=== PATIENT | male | born 1935 | race Caucasian/White ===

== ENCOUNTER 2016-10-29 20:46 | Emergency (ER) | payer MEDICARE, BC ==
[2016-10-29] MEDS ORDERED: ceFAZolin VIAL(*) 1 GM in NS 0.9% 50 ML* 50 ML IVPB ONE (22:07)
[2016-10-29 22:23] LABS: Hematocrit 44 % (42-52); Hemoglobin 14.4 g/dl (14.0-18.0); Mean Corpuscular HGB Conc 33 g/dl (31-36); Mean Corpuscular Hemoglobin 32 pg (27-31); Mean Corpuscular Volume 96 fL (80-94); Mean Platelet Volume 8 um3 (7.4-10.4); Red Blood Count 4.56 10^6/ul (4.0-5.4); Red Cell Distribution Width 13 % (10.5-15); White Blood Count 7.8 10^3/ul (3.5-10.8)
[2016-10-29] MEDS ORDERED: ceFAZolin VIAL(*) 1 GM VIAL ONE (22:27)
[2016-10-29 22:38] LABS: Albumin 4.2 g/dL (3.2-5.2); BUN/Creatinine Ratio 11.2 (8-20); C Reactive Protein 4.05 mg/L (< 5.00); Calcium 9.4 mg/dL (8.6-10.3); EGFR African American 66.1 (>60); EGFR Non-African American 51.4 (>60); Globulin 2.3 g/dL (2-4); Potassium 3.7 mmol/L (3.5-5.0); Total Bilirubin 0.4 mg/dL (0.2-1.0); Total Protein 6.5 g/dL (6.4-8.9)
--- NOTE | 2016-10-29 22:51 | RAD ---
Indication: RIGHT lower leg swelling following injury. Comparison: No relevant prior exams available on the [facility] for comparison. Technique: AP and lateral views RIGHT lower leg. Report: Normal alignment. Negative for fracture. Unremarkable soft tissue contours. No conspicuous foreign body evident. Negative for subcutaneous emphysema. IMPRESSION: Negative exam.
[2016-10-29] MEDS ORDERED: Cephalexin CAP* 500 MG PO ONE (23:03)
--- NOTE | 2016-10-29 23:06 | ED ---
Alta Mota Edward, scribed for Maggie Valladares MD on 10/29/16 at 2104 . Lower Extremity - HPI Summary HPI Summary: 81 y/o male presents to ED with RLE pain. Patient was walking two nights ago when a tree limb the size of the patient's head fell on the patient's R landry. The pain started immediately and got progressively worse. Patient stated that erythema and edema in the R landry started tonight, as well as a throbbing pain. Denies fever. No allergies. PMHx NV, no PMHx HTN, DM, bypass surgery. Patient is a nonsmoker and doesn't use EtOH or drugs. - History of Current Complaint Chief Complaint: EDExtremityLower Stated Complaint: TREE FELL ON RIGHT LEG Hx Obtained From: Patient Mechanism Of Injury: Blunt Trauma - Hit with tree limb Onset of Pain: Immediate Onset/Duration: Days - Two days ago Severity Initially: Severe Severity Currently: Severe Pain Intensity: 8 Pain Scale Used: 0-10 Numeric Timing: Constant Character Of Pain: Throbbing Associated Signs And Symptoms: Positive: Swelling, Redness - Allergies/Home Medications Allergies/Adverse Reactions: Allergies Allergy/AdvReac Type Severity Reaction Status Date / Time No Known Allergies Allergy Verified 12/13/13 14:41 PMH/Surg Hx/FS Hx/Imm Hx Previously Healthy: No Cardiovascular History: Reports: Hx Myocardial Infarction - 1997, Other Cardiovascular Problems/Disorders - Heart disease Respiratory History: Reports: Hx Chronic Obstructive Pulmonary Disease (COPD) GI History: Reports: Other GI Disorders - Stomach problems Musculoskeletal History: Reports: Hx Arthritis - Surgical History Surgery Procedure, Year, and Place: Pacemaker, Defribillator Infectious Disease History: No Infectious Disease History: Denies: Traveled Outside the [place] in Last 30 Days - Family History Known Family History: Positive: Cardiac Disease, Other - Stroke - Social History Occupation: Retired Lives: With Family Alcohol Use: None Substance Use Type: Reports: None Smoking Status (MU): Former Smoker Review of Systems Constitutional: Negative Negative: Fever Eyes: Negative ENT: Negative Cardiovascular: Negative Respiratory: Negative Gastrointestinal: Negative Genitourinary: Negative Musculoskeletal: Other - Throbbing pain, R landry Positive: Edema - RLE Skin: Other - Erythema R landry Neurological: Negative Psychological: Normal All Other Systems Reviewed And Are Negative: Yes Physical Exam Triage Information Reviewed: Yes Vital Signs On Initial Exam: Initial Vitals Temp Pulse Resp BP Pulse Ox 97.9 F 77 16 111/64 95 10/29/16 20:51 10/29/16 20:51 10/29/16 20:51 10/29/16 20:51 10/29/16 20:51 Vital Signs Reviewed: Yes Appearance: Positive: Well-Appearing, No Pain Distress Skin: Positive: Warm, Skin Color Reflects Adequate Perfusion, Dry, Other - Anterior scab in the R landry - 7x2 cm abrasion, surrounded by a region of 15x5 cm erythema. No fluctuance. No induration. Eyes: Positive: EOMI, SANTO ENT: Positive: Pharynx normal, TMs normal Neck: Positive: Supple, Nontender Respiratory/Lung Sounds: Positive: Clear to Auscultation, Breath Sounds Present. Negative: Rales, Rhonchi, Wheezes Cardiovascular: Positive: RRR, Other - No gallops. Negative: Murmur, Rub Abdomen Description: Positive: Nontender, Soft, Other: - No rebound. Negative: Distended, Guarding Bowel Sounds: Positive: Present Musculoskeletal: Positive: Normal. Negative: Edema Left, Edema Right Neurological: Positive: Sensory/Motor Intact, Alert, Oriented to Person Place, Time, CN Intact II-III Psychiatric: Positive: Affect/Mood Appropriate Diagnostics - Vital Signs Vital Signs Temp Pulse Resp BP Pulse Ox 10/29/16 20:51 97.9 F 77 16 111/64 95 - Laboratory Lab Results: Lab Results 10/29/16 10/29/16 Range/Units 22:15 22:15 WBC 7.8 (3.5-10.8) 10^3/ul RBC 4.56 (4.0-5.4) 10^6/ul Hgb 14.4 (14.0-18.0) g/dl Hct 44 (42-52) % MCV 96 H (80-94) fL MCH 32 H (27-31) pg MCHC 33 (31-36) g/dl RDW 13 (10.5-15) % Plt Count 118 L (150-450) 10^3/ul MPV 8 (7.4-10.4) um3 Neut % (Auto) 60.9 (38-83) % Lymph % (Auto) 15.6 L (25-47) % [place] % (Auto) 9.2 H (1-9) % Eos % (Auto) 12.8 H (0-6) % Baso % (Auto) 1.5 (0-2) % Absolute Neuts (auto) 4.7 (1.5-7.7) 10^3/ul Absolute Lymphs (auto) 1.2 (1.0-4.8) 10^3/ul Absolute Monos (auto) 0.7 (0-0.8) 10^3/ul Absolute Eos (auto) 1.0 H (0-0.6) 10^3/ul Absolute Basos (auto) 0.1 (0-0.2) 10^3/ul Absolute Nucleated RBC 0 10^3/ul Nucleated RBC % 0 Sodium 137 (133-145) mmol/L Potassium 3.7 (3.5-5.0) mmol/L Chloride 105 (101-111) mmol/L Carbon Dioxide 28 (22-32) mmol/L Anion Gap 4 (2-11) mmol/L BUN 15 (6-24) mg/dL Creatinine 1.34 H (0.67-1.17) mg/dL Est GFR ( Amer) 66.1 (>60) Est GFR (Non-Af Amer) 51.4 (>60) BUN/Creatinine Ratio 11.2 (8-20) Glucose 121 H (70-100) mg/dL Calcium 9.4 (8.6-10.3) mg/dL Total Bilirubin 0.40 (0.2-1.0) mg/dL AST 15 (13-39) U/L ALT 12 (7-52) U/L Alkaline Phosphatase 68 (34-104) U/L C-Reactive Protein 4.05 (< 5.00) mg/L Total Protein 6.5 (6.4-8.9) g/dL Albumin 4.2 (3.2-5.2) g/dL Globulin 2.3 (2-4) g/dL Albumin/Globulin Ratio 1.8 (1-3) Result Diagrams: 10/29/16 22:15 10/29/16 22:15 Lab Statement: Any lab studies that have been ordered have been reviewed, and results considered in the medical decision making process. - Radiology LOWER EXTREMITY XRAY Xray Interpretation: No Acute Changes - Negative exam. Radiology Interpretation Completed By: Radiologist Lower Extremity Course/Dx - Course Course Of Treatment: 81 yo male with cardiomyopathy with new cellulitis to leg after he received an abrasion from a branch. wbc normal, pt and very aware that he needs very close f/u to terence sure this is getting better - Diagnoses Provider Diagnoses: Cellulitis Discharge - Discharge Plan Condition: Stable Disposition: HOME Prescriptions: Cephalexin CAP* [Keflex CAP*] 500 mg PO QID #28 cap Patient Education Materials: Cellulitis (ED) Referrals: Rizwan TATE,Александр Rahman [Primary Care Provider] - 3 Days (Follow up in 2-3 days please.) The documentation as recorded by the Alta mitchell Edward accurately reflects the service I personally performed and the decisions made by me, Maggie Valladares MD.
[2016-10-29 23:18] VITALS: BP 125/66
== END 2016-10-29 23:20 | disposition home or self-care (01) ==
LOC: ED 20:46
DX: L03.90 Cellulitis, unspecified (principal); R60.9 Edema, unspecified; Z87.891 Personal history of nicotine dependence
CPT/HCPCS: 36415; 80053; 85025; 86140; 99283; A9270-GY; J0690

== ENCOUNTER 2016-12-12 17:33 | Emergency (ER) | payer MEDICARE, BC ==
[2016-12-12] MEDS ORDERED: Tetan/Diph/Pertus SYR(Tdap)* 0.5 ML SYR(BOOSTRIX) use SYR IM ONE (18:06)
[2016-12-12] MEDS ORDERED: HYDROcodone/ACETAMIN 5-325 MG* 1 TAB PO ONE (18:55)
--- NOTE | 2016-12-12 19:18 | ED ---
Greg Mota Benjamin, scribed for Maggie Valladares MD on 12/12/16 at 1903 . Laceration/Wound HPI - HPI Summary HPI Summary: 81yo male presents with a left thumb laceration. Pt was cutting ziptie off the waterpipe with a pocket knife and accidentally cut his own left thumb. Pt is not sure when his last tetanus shot was. Pt reports pain in his left thumb upon movement. Hx of [place] and pt has a defibrillator placed. - History of Current Complaint Stated Complaint: THUMB LAC Time Seen by Provider: 12/12/16 18:06 Hx Obtained From: Patient, Family/Commercial Correspondent - Mechanism of Injury: Sharp/Blunt Trauma - sharp Onset/Duration: Lasting Hours, Still Present Aggravating: Movement Alleviating: Compression Timing: Constant Onset Severity: Mild Current Severity: Mild Pain Intensity: 0 Pain Scale Used: 0-10 Numeric Associated Signs & Symptoms: Pain - Allergy/Home Medications Allergies/Adverse Reactions: Allergies Allergy/AdvReac Type Severity Reaction Status Date / Time No Known Allergies Allergy Verified 12/13/13 14:41 PMH/Surg Hx/FS Hx/Imm Hx Endocrine/Hematology History: Denies: Hx Diabetes Cardiovascular History: Reports: Hx Myocardial Infarction - 1997, Hx Pacemaker/ ICD - difibrillator in place, Other Cardiovascular Problems/Disorders - Heart disease; Denies: Hx Hypertension Respiratory History: Reports: Hx Chronic Obstructive Pulmonary Disease (COPD) GI History: Reports: Other GI Disorders - Stomach problems History: Denies: Hx Renal Disease Musculoskeletal History: Reports: Hx Arthritis - Surgical History Surgery Procedure, Year, and Place: Pacemaker, Defribillator Infectious Disease History: No Infectious Disease History: Denies: Traveled Outside the [place] in Last 30 Days - Family History Known Family History: Positive: Cardiac Disease, Other - Stroke - Social History Occupation: Retired Lives: With Family Alcohol Use: None Substance Use Type: Reports: None Smoking Status (MU): Former Smoker Review of Systems Constitutional: Negative Eyes: Negative ENT: Negative Cardiovascular: Negative Respiratory: Negative Gastrointestinal: Negative Genitourinary: Negative Positive: Arthralgia - left thumb pain d/t laceration , Decreased ROM - left thumb pain d/t pain Positive: Other - left thumb laceration Neurological: Negative Psychological: Normal All Other Systems Reviewed And Are Negative: Yes Physical Exam Triage Information Reviewed: Yes Vital Signs On Initial Exam: Initial Vitals Temp Pulse Resp BP Pulse Ox 98.6 F 57 17 124/68 96 12/12/16 17:44 12/12/16 17:44 12/12/16 17:44 12/12/16 17:44 12/12/16 17:44 Vital Signs Reviewed: Yes Appearance: Positive: Well-Appearing, No Pain Distress, Well-Nourished Skin: Positive: Warm, Skin Color Reflects Adequate Perfusion, Dry, Other - 2cm laceration at the MCP of left thumb Head/Face: Positive: Normal Head/Face Inspection Eyes: Positive: Normal ENT: Positive: Normal ENT inspection, Hearing grossly normal Neck: Positive: Supple, Nontender, No Lymphadenopathy Respiratory/Lung Sounds: Positive: Clear to Auscultation, Breath Sounds Present Cardiovascular: Positive: RRR Abdomen Description: Positive: Nontender, Soft Bowel Sounds: Positive: Present Musculoskeletal: Positive: Limited @ - cant fully abduct the left thumb seems to be due to pain, Pain @ - cant fully abduct the left thumb seems to be due to pain Neurological: Positive: Alert, Oriented to Person Place, Time, CN Intact II-III , Other - sensation of left thumb intact. Psychiatric: Positive: Affect/Mood Appropriate Procedures - Laceration/Wound Repair left thumb Location: Other - left thumb Description: Linear Length, Depth and Shape: 5cm MCP of left thumb Betadine Prep?: Yes Irrigated w/ Saline (ccs): 250 Laceration/Wound Explored: clean Closure: Single Layer Suture Type: Nylon - 4.0 Number of Sutures: 3 Diagnostics - Vital Signs Vital Signs Temp Pulse Resp BP Pulse Ox 12/12/16 18:27 98.6 F 57 16 124/68 96 12/12/16 17:44 98.6 F 57 17 124/68 96 - Laboratory Lab Statement: Any lab studies that have been ordered have been reviewed, and results considered in the medical decision making process. Laceration Repair Course/Dx - Course Course Of Treatment: Reviewed pts medication and allergy lists. Will refer pt to Dr. Cox (Ortho) for follow up. Pt with deep but small wound to lateral thumb at mcp joint with a knife. He had much difficulty abducting the thumb likely secondary to pain, but pt will do followup with hand surgeon to rule out any tendon injury, neurovascularly intact. - Clinical Impression Provider Diagnoses: Laceration Discharge - Discharge Plan Condition: Stable Disposition: HOME Prescriptions: Cephalexin CAP* [Keflex 500 CAP*] 500 mg PO QID #28 cap The documentation as recorded by the Greg mitchell Benjamin accurately reflects the service I personally performed and the decisions made by me, Maggie Valladares MD.
[2016-12-12 20:21] VITALS: BP 120/70
== END 2016-12-12 19:40 | disposition home or self-care (01) ==
LOC: ED 17:33
DX: S61.012A Laceration without foreign body of left thumb without damage to nail, initial encounter (principal); W26.0XXA Contact with knife, initial encounter; Y93.89 Activity, other specified; Y92.9 Unspecified place or not applicable; Z87.891 Personal history of nicotine dependence
CPT/HCPCS: 90471; 90715; 99281

== ENCOUNTER 2017-01-01 13:53 | Emergency (ER) | payer MEDICARE, BC ==
--- NOTE | 2017-01-01 14:59 | RAD ---
HISTORY: Right shoulder pain, injury COMPARISONS: None VIEWS: 4, Frontal internal rotation, external rotation, outlet, and axillary views of the right shoulder FINDINGS: BONE DENSITY: There is diffuse osteopenia. BONES: The patient is status post internal fixation of the clavicle. JOINTS: There is mild to moderate osteoarthritis of the a.c. and glenohumeral joints. ALIGNMENT: There is no dislocation. SOFT TISSUES: Unremarkable. OTHER FINDINGS: None. IMPRESSION: 1. OSTEOPENIA. 2. OSTEOARTHRITIS. 3. POST SURGICAL CHANGE TO THE RIGHT CLAVICLE. 4. NO ACUTE OSSEOUS INJURY. IF SYMPTOMS PERSIST, RECOMMEND REPEAT IMAGING.
--- NOTE | 2017-01-01 15:00 | RAD ---
HISTORY: Right upper pain, trauma COMPARISONS: None VIEWS: 4, Frontal, lateral, and oblique views the elbow of the right elbow FINDINGS: BONE DENSITY: Normal. BONES: There is no displaced fracture. JOINTS: There is osteoarthritis of the ulna-trochlear and radial-capitellar articulation. There is no posterior supracondylar fat pad to suggest a joint effusion. ALIGNMENT: There is no dislocation. SOFT TISSUES: Unremarkable. OTHER FINDINGS: None. IMPRESSION: OSTEOARTHRITIS. NO ACUTE OSSEOUS INJURY. IF SYMPTOMS PERSIST, RECOMMEND REPEAT IMAGING.
[2017-01-01] MEDS ORDERED: Naproxen TAB* 250 MG PO ONE (15:47)
--- NOTE | 2017-01-01 15:51 | ED ---
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 States he was walking when he fell/slid into a 4 foot hole landing and applying all weight to right shoulder. Patient denies any other injuries, did not hit head, no LOC. Has not taken any medication. States pain is aching and sharp when attempting to move it. Denies numbness/tingling. No back, neck, hip or lower extremity pain. States pain worsens with movement and is better with rest. No known bruising, swelling or obvious deformity. - History of Current Complaint Chief Complaint: EDTraumaMultiple Stated Complaint: FALL, SHOULDER INJURY Time Seen by Provider: 01/01/17 14:16 Hx Obtained From: Patient Mechanism Of Injury: Fall From Height Of: - 4 feet, "slid", Twisted Onset/Duration: Started Hours Ago, Traumatic, Still Present Timing: Constant, Intermittent - worse with lifting or movement Severity Initially: Moderate Severity Currently: Moderate Pain Location: Shoulder - right Aggravating Factor(s): Movement, Lifting, Flexion Alleviating Factor(s): Rest Associated Signs & Symptoms: Positive: Negative Related History: Dominant Hand Right - Allergies/Home Medications Allergies/Adverse Reactions: Allergies Allergy/AdvReac Type Severity Reaction Status Date / Time No Known Allergies Allergy Verified 12/13/13 14:41 PMH/Surg Hx/FS Hx/Imm Hx Endocrine/Hematology History: Denies: Hx Diabetes Cardiovascular History: Reports: Hx Myocardial Infarction - 1997, Hx Pacemaker/ ICD - difibrillator in place, Other Cardiovascular Problems/Disorders - Heart disease; Denies: Hx Hypertension Respiratory History: Reports: Hx Chronic Obstructive Pulmonary Disease (COPD) GI History: Reports: Other GI Disorders - Stomach problems History: Denies: Hx Renal Disease Musculoskeletal History: Reports: Hx Arthritis - Surgical History Surgery Procedure, Year, and Place: Pacemaker, Defribillator - Immunization History Immunizations Up to Date: Yes Infectious Disease History: No Infectious Disease History: Denies: Traveled Outside the [place] in Last 30 Days - Family History Known Family History: Positive: Cardiac Disease, Other - Stroke - Social History Alcohol Use: None Substance Use Type: Reports: None Smoking Status (MU): Former Smoker Review of Systems Constitutional: Negative Cardiovascular: Negative Respiratory: Negative Positive: Arthralgia, Myalgia, Decreased ROM - right shoulder Skin: Negative Neurological: Negative All Other Systems Reviewed And Are Negative: Yes Physical Exam Triage Information Reviewed: Yes Vital Signs On Initial Exam: Initial Vitals Temp Pulse Resp BP Pulse Ox 96.9 F 75 19 119/69 94 01/01/17 13:56 01/01/17 13:56 01/01/17 13:56 01/01/17 13:56 01/01/17 13:56 Vital Signs Reviewed: Yes Appearance: Positive: Well-Appearing, Well-Nourished, Pain Distress - mild with movement of right shoulder Skin: Positive: Warm, Skin Color Reflects Adequate Perfusion, Dry. Negative: Cold, Numb, Cyanosis @, Pale, Erythema @ Head/Face: Positive: Normal Head/Face Inspection Eyes: Positive: Conjunctiva Clear ENT: Positive: Hearing grossly normal Neck: Positive: Supple, Nontender Respiratory/Lung Sounds: Positive: Clear to Auscultation, Breath Sounds Present. Negative: Decreased Breath Sounds, Rales, Rhonchi, Wheezes Cardiovascular: Positive: Normal, RRR, Pulses are Symmetrical in both Upper and Lower Extremities - 2+ radial bl. Negative: Murmur, Rub Musculoskeletal: Positive: Limited @ - right shoulder with flexion and extension due to pain, better with passive ROM able to hold arm at 45 degrees without difficulty. no ecchymosis, edema, crepitus or step off, no obvious deformities. strengt intact, Pain @ - on palpation of posterior, anterior and lateral shoulder on palpation and movement. Negative: Interruption @, Edema Left, Edema Right Neurological: Positive: Normal, Sensory/Motor Intact - intact and normal, Alert , Oriented to Person Place, Time, Reflexes Intact, [place] Bundle Intact Distally, Normal Gait - [place] Coma Scale Coma Scale Total: 15 Diagnostics - Vital Signs Vital Signs Temp Pulse Resp BP Pulse Ox 01/01/17 13:56 96.9 F 75 19 119/69 94 - Laboratory Lab Statement: Any lab studies that have been ordered have been reviewed, and results considered in the medical decision making process. - Radiology shoulder right Xray Interpretation: No Acute Changes - 1. OSTEOPENIA. 2. OSTEOARTHRITIS. 3. POST SURGICAL CHANGE TO THE RIGHT CLAVICLE. 4. NO ACUTE OSSEOUS INJURY. IF SYMPTOMS PERSIST, RECOMMEND REPEAT IMAGING. Radiology Interpretation Completed By: Radiologist elbow right Xray Interpretation: No Acute Changes - OSTEOARTHRITIS. NO ACUTE OSSEOUS INJURY. IF SYMPTOMS PERSIST, RECOMMEND REPEAT IMAGING. Radiology Interpretation Completed By: Radiologist Course/Dx - Course Course Of Treatment: recommended some aleve while in ED however patient stated he would take some at home. x-rays obtained and negative. no new fractures or dislocations. appears to be suffering from a sprain/contusion. follow up with pcp. continue NSAID, rest and pain management at home. Sling and heat/cool compresses. Gently and slowly move right arm a few times daily out of sling to refrain from frozen shoulder. Further evaluation and imaging may be required. Aware of worsening signs and symptoms. - Diagnoses Differential Diagnosis/HQI/PQRI: Positive: Bursitis, Contusion, Fracture (Closed ), Strain, Sprain, Other - dislocation Provider Diagnoses: Sprain of shoulder, right Discharge - Discharge Plan Condition: Stable Disposition: HOME Patient Education Materials: Shoulder Sprain (ED) Referrals: Rizwan TATE,Александр Rahman [Primary Care Provider] - Froest Chen MD [Medical Doctor] - Additional Instructions: Take some Aleve or Advil as needed for pain for the next 2-3 days. Use sling to avoid overuse of injured shoulder. Rest and refrain from physical activity/lifting until symptoms improve. Heating pad during day, ice at night. Gently move arm and shoulder 1-2 times a day to avoid stiff, frozen shoulder. Follow up with primary care provider if symptoms do not improve, worsen and to ensure proper healing. If symptoms worsen or new symptoms develop please seek medical attention promptly.
[2017-01-01 16:04] VITALS: BP 95/51
== END 2017-01-01 16:03 | disposition home or self-care (01) ==
LOC: ED 13:53
DX: S43.401A Unspecified sprain of right shoulder joint, initial encounter (principal); J44.9 Chronic obstructive pulmonary disease, unspecified; Z95.810 Presence of automatic (implantable) cardiac defibrillator; Z87.891 Personal history of nicotine dependence; W17.2XXA Fall into hole, initial encounter; Y92.9 Unspecified place or not applicable; I25.2 Old myocardial infarction; M19.011 Primary osteoarthritis, right shoulder
CPT/HCPCS: 99282; A9270-GY

== ENCOUNTER 2017-09-30 05:30 | Inpatient (IN) | payer MEDICARE, BC ==
[2017-09-30] MEDS ORDERED: Albuterol/Ipratropium NEB.SOL* Albuterol 2.5 MG/Ipratropium 0.5 MG 3 ML INH SCH (06:00)
[2017-09-30] MEDS ORDERED: Albuterol/Ipratropium NEB.SOL* Albuterol 2.5 MG/Ipratropium 0.5 MG 3 ML ONE (06:02)
--- NOTE | 2017-09-30 06:09 | ED ---
Shortness of Breath - HPI Summary HPI Summary: The patient is a 81-year-old male with history of COPD,[place] with pacemaker presenting to the ED with chief complaint of fevers, chills, cough with production, shortness of breath and dizziness. He is accompanied by his . He sees Dr. Perry. Last visit 09/25/17. He was placed on a prednisone taper as well as doxycycline. Despite these measures he continues to worsen. He does not require oxygen at home. He states symptoms have been present for a few weeks but just had started worsening 2 days ago. He also has a nebulizer at home which is not been improving his symptoms. He is also taking furosemide for leg swelling, Flovent twice daily and anora ellipta daily. Chest x-ray was completed 6 days ago, however he does not know the results. He was hospitalized for same in March 2017. He is a former smoker 50 years. On arrival his vital signs are stable, however he is diaphoretic with chills. Dyspnea at rest. Aggravated with ambulation, alleviated somewhat by rest and sitting upward. - History of Current Complaint Chief Complaint: EDShortnessOfBreath Time Seen by Provider: 09/30/17 05:47 Hx Obtained From: Patient Onset/Duration: Gradual Onset Timing: Constant Current Severity: Moderate Dyspnea At: Rest Alleviating Factors: Bronchodilators - slight improvement with duo nebs Associated Signs & Symptoms: Cough (Productive) - yellow thick sputum, Wheezing , Chest Pain w/Cough, Chills, Diaphoresis, Dizzy, Edema - Risk Factors Pulmonary Embolism: Negative Cardiac: Prior [place], Smoking, Elevated lipids, Hypertension Pseudomonas: Chronic Steriod Use Past 3 Months Tuberculosis: Corticosteriod Use, Chronic Respiratory Failure, Smoking - Allergy/Home Medications Allergies/Adverse Reactions: Allergies Allergy/AdvReac Type Severity Reaction Status Date / Time No Known Allergies Allergy Verified 12/13/13 14:41 Home Medications: Home Medications DOXYcycline CAP(*) [DOXYcycline 100MG CAP(*)] 100 mg PO BID 09/30/17 [History Confirmed 09/30/17] Donepezil TAB* [Aricept 5 MG TAB*] 10 mg PO DAILY 09/30/17 [History Confirmed ] Flaxseed Oil [[place]-3 Flaxseed Oil] 2,400 mg PO BID 09/30/17 [History Confirmed 09/30/17] Fluticasone DISKUS 100 MCG(NF) [Flovent Diskus 100 MCG(NF)] 1 puff INH BID 09/30 [History Confirmed 09/30/17] Ipratropium 0.5MG/2.5ML NEB* [Atrovent 0.5 MG NEB.NIGHAT*] 0.5 mg INH Q4H PRN 09/30 [History Confirmed 09/30/17] Omeprazole CAP* [Prilosec CAP* 20 MG] 40 mg PO DAILY 09/30/17 [History Confirmed 09/30/17] Rosuvastatin (NF) [Crestor] 20 mg PO QAM 09/30/17 [History Confirmed 09/30/17] Tamsulosin CAP* [Flomax CAP*] 0.4 mg PO DAILY 09/30/17 [History Confirmed ] Tumeric 500 mg PO DAILY 09/30/17 [History Confirmed 09/30/17] Umeclidin/Vilant 62.5 MDI(NF) [ANORO 62.5/25 Ellipta DEVICE (NF)] 1 inh INH DAILY 09/30/17 [History Confirmed 09/30/17] lamoTRIgine TAB(*) [LaMICtal TAB(*)] 50 mg PO BID 09/30/17 [History Confirmed ] PMH/Surg Hx/FS Hx/Imm Hx Previously Healthy: No - see below Endocrine/Hematology History: Denies: Hx Diabetes Cardiovascular History: Reports: Hx Myocardial Infarction - 1997, Hx Pacemaker/ ICD - difibrillator in place, Other Cardiovascular Problems/Disorders - Heart disease; Denies: Hx Hypertension Respiratory History: Reports: Hx Chronic Obstructive Pulmonary Disease (COPD) Denies: Hx Asthma GI History: Reports: Other GI Disorders - Stomach problems History: Denies: Hx Renal Disease Musculoskeletal History: Reports: Hx Arthritis Sensory History: Reports: Hx Contacts or Glasses - for farsightedness Denies: Hx Hearing Aid Opthamlomology History: Reports: Hx Contacts or Glasses - for farsightedness - Surgical History Surgery Procedure, Year, and Place: Pacemaker, Defribillator - Immunization History Hx Pertussis Vaccination: Yes Immunizations Up to Date: Yes Infectious Disease History: No Infectious Disease History: Denies: Traveled Outside the [place] in Last 30 Days - Family History Known Family History: Positive: Cardiac Disease, Other - Stroke - Social History Occupation: Unemployed Lives: With Family Alcohol Use: None Substance Use Type: Reports: None Smoking Status (MU): Former Smoker Review of Systems Positive: Chills, Fatigue, Skin Diaphoresis. Negative: Fever Negative: Sore Throat, Ear Ache Negative: Palpitations, Chest Pain Positive: Shortness Of Breath, Cough Negative: Abdominal Pain, Vomiting, Diarrhea, Nausea Genitourinary: Negative Positive: no symptoms reported, see HPI Negative: Arthralgia, Myalgia Positive: Weakness All Other Systems Reviewed And Are Negative: Yes Physical Exam Triage Information Reviewed: Yes Vital Signs On Initial Exam: Initial Vitals Temp Pulse Resp BP Pulse Ox 99.1 F 89 20 128/65 91 09/30/17 05:32 09/30/17 05:32 09/30/17 05:32 09/30/17 05:32 09/30/17 05:32 Vital Signs Reviewed: Yes Appearance: Positive: Ill-Appearing Skin: Positive: Diaphoretic Head/Face: Positive: Normal Head/Face Inspection Eyes: Positive: EOMI, SANTO, Conjunctiva Clear Neck: Positive: No Lymphadenopathy Respiratory/Lung Sounds: Positive: Wheezes - bilateral, Other - able to speak full sentenses Cardiovascular: Positive: RRR - paced rhythm Musculoskeletal: Positive: Normal, Strength/ROM Intact Neurological: Positive: Sensory/Motor Intact, Alert, Oriented to Person Place, Time, Speech Normal Psychiatric: Positive: Affect/Mood Appropriate Diagnostics - Vital Signs Vital Signs Temp Pulse Resp BP Pulse Ox 09/30/17 05:44 69 19 138/72 93 09/30/17 05:32 99.1 F 89 20 128/65 91 - Laboratory Result Diagrams: 09/30/17 06:04 09/30/17 06:04 Lab Statement: Any lab studies that have been ordered have been reviewed, and results considered in the medical decision making process. - EKG No standard instances Cardiac Rate: NL EKG Rhythm: Sinus Rhythm ST Segment: Non-Specific - St elevation, consider anterolateral injury EKG Comparison: Other - RBBB and LPFB Course/Dx - Course Course Of Treatment: During the course of treatment, patient is evaluated for shortness of breath, dizziness and cough with sputum production. He is seen by Dr. Perry. He is currently on a prednisone taper as well as doxycycline. Despite these measures he continues to worsen he states. Cough with production is yellow thick sputum. Cough is worse at night. He has also endorsing chills. On arrival he appears to be diaphoretic and uncomfortable. Vital signs 99.1, 89, respirations 20, 91% on room air, BP 128/65. He currently does not require oxygen at home. He states after ambulating for 5-10 he become short of breath and needs to sit down. This is new for him over the past week. Discussed case with Dr. Garnett who agrees to admit patient. IMPRESSION: PATCHY CONSOLIDATION OF THE RIGHT MIDDLE LOBE. RECOMMEND FOLLOW-UP UNTIL RESOLUTION TO. EXCLUDE UNDERLYING PULMONARY PARENCHYMAL PATHOLOGY. Troponin 0.04 but this is baseline for patient and typically higher. - Diagnoses Provider Diagnoses: Pneumonia - Physician Notifications Discussed Care of Patient With: Ana Garnett - agrees to admit patient Discharge - Sign-Out/Discharge Documenting (check all that apply): Discharge/Admit/Transfer - Discharge Plan Condition: Stable Disposition: ADMITTED TO [facility] - Billing Disposition and Condition Condition: STABLE Disposition: [facility]
[2017-09-30] MEDS: Albuterol/Ipratropium NEB.SOL* Albuterol 2.5 MG/Ipratropium 0.5 MG 3 ML INH ONE (06:21)
[2017-09-30 06:36] LABS: ABS Basophils 0 10^3/ul (0-0.2); ABS Eosinophils 0.3 10^3/ul (0-0.6); ABS Lymphocytes 0.7 10^3/ul (1.0-4.8); ABS Monocytes 1.1 10^3/ul (0-0.8); ABS Neutrophils 10.2 10^3/ul (1.5-7.7); ABS Nucleated RBC 0 10^3/ul; Eosinophil % 2.6 % (0-6); Hematocrit 46 % (42-52); Hemoglobin 15.6 g/dl (14.0-18.0); Lymphocyte % 5.8 % (25-47); Mean Corpuscular HGB Conc 34 g/dl (31-36); Mean Corpuscular Hemoglobin 32 pg (27-31); Mean Corpuscular Volume 95 fL (80-94); Nucleated Red Blood Cells % 0; Platelet Count 127 10^3/ul (150-450); Red Blood Count 4.88 10^6/ul (4.0-5.4); Red Cell Distribution Width 13 % (10.5-15); White Blood Count 12.4 10^3/ul (3.5-10.8)
[2017-09-30 06:38] LABS: INR 0.97 (0.77-1.02)
[2017-09-30 06:47] LABS: EGFR Non-African American 63.9 (>60)
[2017-09-30] MEDS ORDERED: Albuterol/Ipratropium NEB.SOL* Albuterol 2.5 MG/Ipratropium 0.5 MG 3 ML INH ONE (07:20)
--- NOTE | 2017-09-30 08:11 | RAD ---
HISTORY: Shortness of breath COMPARISONS: September 25, 2017 VIEWS: 4: Frontal dual-energy and lateral views of the chest. FINDINGS: CARDIOMEDIASTINAL SILHOUETTE: The cardiomediastinal silhouette is normal. LEONIDES: The leonides are normal. PLEURA: The costophrenic angles are sharp. No pleural abnormalities are noted. LUNG PARENCHYMA: There is patchy alveolar opacification of the right middle lobe. ABDOMEN: The upper abdomen is clear. There is no subphrenic gas. BONES AND SOFT TISSUES: The patient is status post internal fixation of the right clavicle. OTHER: A left-sided AICD is noted. IMPRESSION: PATCHY CONSOLIDATION OF THE RIGHT MIDDLE LOBE. RECOMMEND FOLLOW-UP UNTIL RESOLUTION TO EXCLUDE UNDERLYING PULMONARY PARENCHYMAL PATHOLOGY.
[2017-09-30] MEDS ORDERED: Albuterol/Ipratropium NEB.SOL* Albuterol 2.5 MG/Ipratropium 0.5 MG 3 ML INH PRN (09:18)
[2017-09-30] MEDS ORDERED: Furosemide TAB* 40 MG PO PRN (09:19)
[2017-09-30] MEDS ORDERED: NS 0.9% 1000 ML* 1,000 ML IV SCH (09:30)
[2017-09-30] MEDS ORDERED: Acetaminophen TAB* 325 MG PO PRN (09:47)
[2017-09-30] MEDS ORDERED: Al Hydrox/Mg Hydrox/Simet LIQ* 30 ML UDC PO PRN (09:47)
[2017-09-30] MEDS ORDERED: cefTRIAXone(*) 1 GM in NS 0.9% 50 ML* 50 ML IVPB SCH (10:00)
[2017-09-30] MEDS: methylPREDNISolone SOD 40 MG* 1 ML VIAL IV SCH ×2 (10:13→17:24)
[2017-09-30] MEDS ORDERED: Azithromycin IV(*) 500 MG in NS 0.9% 250 ML* 250 ML IVPB SCH (12:00)
--- NOTE | 2017-09-30 12:10 | HP ---
ADDENDUM NOW INCLUDED ON THIS REPORT CC: Dr. Astorga; Dr. Berrios, Dr. Manfred Kwan * HISTORY AND PHYSICAL: DATE OF ADMISSION: 09/30/17 PRIMARY CARE PROVIDER: Dr. Astorga NEUROLOGIST: Manfred Kwan MD from [facility] in [place], [place]. INSTRUMENT PROCESSING TECH: Dr. Berrios CHIEF COMPLAINT: Shortness of breath, cough, and coughing up purulent sputum. HISTORY OF PRESENT ILLNESS: Christoph Estrada is a 81-year-old male with history of non- oxygen dependent COPD, who was started on prednisone and doxycycline [address] Perry for COPD exacerbation and who presented to the hospital complaining of worsening of his symptoms despite treatment with medications. Please note that a chest x-ray obtained on 09/25/2017 showed no pneumonia. Today's x-ray showed significant right middle lobe pneumonia. He is going to be admitted with pneumonia and COPD exacerbation. PAST MEDICAL HISTORY: 1. Mild cognitive impairment. 2. History of benign tremor. 3. History of episodes of mild renal insufficiency. 4. Status post ICD placement by Dr. Berrios. 5. History of coronary disease with stable angina with episodes of chest pain almost on a weekly basis. 6. Gastroesophageal reflux disease. 7. History of COPD, oxygen dependent. 8. History of clavicle repair. 9. History of hernia repair. CURRENT MEDICATIONS: Include: 1. Prednisone 40 mg daily started 5 days ago. 2. Doxycycline 100 mg b.i.d. also started 4 to 5 days ago. 3. Coreg 6.25 mg b.i.d. 4. Flomax 0.4 mg daily. 5. Omeprazole 40 mg daily. 6. Aricept 10 mg daily. 7. Nitroglycerin 0.4 mg sublingual on a p.r.n. basis. 8. Atrovent inhaler on p.r.n. basis. 9. Flovent Diskus 100 mcg 1 puff b.i.d. 10. Furosemide 40 mg daily for leg edema. 11. Crestor 20 mg daily. 12. Lamictal 50 mg b.i.d. 13. Anoro Ellipta 62.5/25 one inhalation daily. 14. Flaxseed oil 1 tablet b.i.d. 15. Turmeric 500 mg daily. 16. Primidone 50 mg IM and 100 q. p.m. ALLERGIES: No known drug allergies. FAMILY HISTORY: Positive for mother with hypertension and diabetes. Father with history of cancer. SOCIAL HISTORY: The patient has history of smoking 48 years and he quit in 1988. He denies any alcohol or drug use. He lives with his who is his surrogate. 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 REVIEW OF SYSTEMS: Positive for coughing up purulent sputum. Positive for generalized weakness and shortness of breath. Positive for poor appetite. Positive for leg edema. His chest pain, which is chronic angina occurs at "different times of day" and is not related to exercise and last chest pain was approximately a auer-byl-o-half and ago. Usual frequency of his chest pain is approximately once a week. The remaining 12 systems were reviewed with the patient and were otherwise negative. PHYSICAL EXAMINATION GENERAL: The patient is a very pleasant 81-year-old male who is in no acute distress. Alert, awake and oriented x3. VITAL SIGNS: Blood pressure of 110/61, heart rate of 100 and regular, respiratory rate 25, oxygen saturation 90% on room air, temperature of 99.1. HEENT: Head: Atraumatic, normocephalic. Eyes: Pupils are equal, reactive to light and accommodation. Oropharynx clear. Mucosa moist. NECK: Supple. No JVD. No bruits bilaterally. RESPIRATORY: Very coarse rhonchi in the right lower, right middle lung with diffuse wheezes in bilateral lungs. CARDIOVASCULAR: Regular rate and rhythm. No murmur. ABDOMEN: Soft, nontender. Bowel sounds are present in all 4 quadrants. EXTREMITIES: There is trace bilateral pedal edema. Pulses are +2 bilaterally. No clubbing or cyanosis. NEURO EVALUATION: Speech is clear. Cranial nerves II through XII grossly intact. Motor strength is 5/5 bilaterally. PSYCHIATRIC: On evaluation, oriented x3. Poor historian. No evidence of anxiety or depression. DIAGNOSTIC STUDIES/LAB DATA: Showed white cell count of 12.4, hemoglobin 15.6 , hematocrit 46 and platelets 127. Sodium of 138, potassium 3.8, chloride 100, carbon dioxide is 25, BUN was 8, creatinine was 1.1. Liver function tests were unremarkable, troponin of 0.04. C- reactive protein of 8.7, B-natriuretic peptide was 351. Portable chest x-ray read by the radiologist, impression: "Fatty consolidation in the right middle lobe, recommended followup until resolution to exclude underlying pulmonary parenchymal pathology." The patient's EKG showed sinus rhythm with heart rate of 88 beats per minute with right bundle-branch block and nonspecific changes in II to III and aVF that is comparable to prior EKG from 2017. ASSESSMENT AND PLAN: 1. Patient has right middle lobe pneumonia. He is going to be treated with ceftriaxone, azithromycin. Sputum culture as well as urine legionella and Streptococcus pneumoniae antigens are going to be obtained. The patient appears mildly dehydrated, but due to history of coronary artery disease and Lasix treatment at home, I will place him on gentle intravenous hydration at 75 mL/hour for 1 L only. That also is due to the patient's elevated B-natriuretic peptide. 2. At this time, for his COPD exacerbation, patient is being placed on Solu- Medrol 40 mg IV every 8 hours. Scheduled DuoNebs are also going to be provided. 3. At this time, the patient's troponin of 0.04, is at his baseline. The patient complains of no chest pain and does not require telemetry monitored unit. 4. The patient's mildly elevated creatinine is consistent with chronic kidney disease, stage 3, which is baseline. 5. For his chronic tremors, the patient is going to be continued on Lamictal and Primidone as previously taken. 6. For DVT prophylaxis, the patient is going to be placed on heparin subcutaneously. 7. The patient's surrogate is his and his code status is full. TIME SPENT: Approximately 70 minutes was spent on admission of this patient, more than half of the time was spent [id number] with the patient doing the interview and physical exam. ADDENDUM: DATE OF ADMISSION: 09/30/17 Please note that once I started infusing IV and AZITHROMYCIN, the patient developed pruritus and erythema at the incision site. His AZITHROMYCIN was discontinued and placed on the patient's allergy list. At this point, the patient's antibiotics are going to be switched from ceftriaxone and AZITHROMYCIN to Zosyn infusion. [id number]/CPS #: [id number]/CPS #: [id number] BANG
[2017-09-30] MEDS: Albuterol/Ipratropium NEB.SOL* Albuterol 2.5 MG/Ipratropium 0.5 MG 3 ML INH SCH ×2 (13:50→19:36)
[2017-09-30] MEDS ORDERED: Piperacillin/Tazobac ADVAN(*) 3.375 GM in NS 0.9% 100 ML* 100 ML IVPB ONE (15:00)
[2017-09-30] MEDS ORDERED: Zosyn per Pharmacy* NOTE FOLLOW UP SCH (15:00)
[2017-09-30] MEDS: Heparin VIAL(*) 5000 UNITS/ML VIAL (FIVE THOUSAND) SUBCUT SCH ×2 (15:26→20:50)
[2017-09-30] MEDS: Primidone TAB(*) 50 MG PO SCH (17:23)
[2017-09-30] MEDS: ZOSYN 3.375 GM Q8H per EXTENDED INFUSION IVPB SCH ×2 (19:27)
[2017-09-30] MEDS: lamoTRIgine TAB(*) 25 MG PO SCH (20:48)
[2017-09-30] MEDS: Docusate CAP* 100 MG PO SCH (20:48)
[2017-09-30] MEDS: Carvedilol TAB* 6.25 MG PO SCH (20:49)
--- NOTE | 2017-09-30 21:38 | HP ---
HISTORY AND PHYSICAL: ADDENDUM: DATE OF ADMISSION: 09/30/17 Please note that once I started infusing IV and AZITHROMYCIN, the patient developed pruritus and erythema at the incision site. His AZITHROMYCIN was discontinued and placed on the patient's allergy list. At this point, the patient's antibiotics are going to be switched from ceftriaxone and AZITHROMYCIN to Zosyn infusion. [id number]/[facility] #: [id number] MTDD
[2017-10-01] MEDS: Albuterol/Ipratropium NEB.SOL* Albuterol 2.5 MG/Ipratropium 0.5 MG 3 ML INH SCH ×4 (00:37→19:19)
[2017-10-01] MEDS: methylPREDNISolone SOD 40 MG* 1 ML VIAL IV SCH ×3 (01:54→17:53)
[2017-10-01] MEDS: ZOSYN 3.375 GM Q8H per EXTENDED INFUSION IVPB SCH ×6 (03:44→20:58)
[2017-10-01] MEDS: Heparin VIAL(*) 5000 UNITS/ML VIAL (FIVE THOUSAND) SUBCUT SCH ×3 (05:12→21:01)
[2017-10-01 06:37] LABS: ABS Basophils 0 10^3/ul (0-0.2); ABS Eosinophils 0 10^3/ul (0-0.6); ABS Lymphocytes 0.5 10^3/ul (1.0-4.8); ABS Monocytes 0.3 10^3/ul (0-0.8); ABS Neutrophils 11.4 10^3/ul (1.5-7.7); ABS Nucleated RBC 0 10^3/ul; Eosinophil % 0.1 % (0-6); Hematocrit 45 % (42-52); Hemoglobin 15.4 g/dl (14.0-18.0); Mean Corpuscular HGB Conc 34 g/dl (31-36); Mean Corpuscular Hemoglobin 32 pg (27-31); Mean Corpuscular Volume 95 fL (80-94); Mean Platelet Volume 7.9 um3 (7.4-10.4); Nucleated Red Blood Cells % 0.2; Platelet Count 126 10^3/ul (150-450); Red Blood Count 4.78 10^6/ul (4.0-5.4); Red Cell Distribution Width 13 % (10.5-15); White Blood Count 12.2 10^3/ul (3.5-10.8)
[2017-10-01 06:47] LABS: EGFR Non-African American 63.2 (>60)
[2017-10-01] MEDS: Omeprazole CAP* 20 MG PO SCH (09:19)
[2017-10-01] MEDS: lamoTRIgine TAB(*) 25 MG PO SCH ×2 (09:19→21:01)
[2017-10-01] MEDS: Primidone TAB(*) 50 MG PO SCH ×2 (09:20→17:53)
[2017-10-01] MEDS: Docusate CAP* 100 MG PO SCH ×2 (09:20→21:01)
[2017-10-01] MEDS: Carvedilol TAB* 6.25 MG PO SCH ×2 (09:20→21:02)
[2017-10-01] MEDS: Donepezil TAB* 5 MG PO SCH (09:20)
[2017-10-01] MEDS: Tamsulosin CAP* 0.4 MG PO SCH (09:21)
--- NOTE | 2017-10-01 09:47 | PN ---
Subjective Date of Service: 10/01/17 Interval History: Patient seen and examined at bedside. Denies fever, chills, shortness of breath (above baseline), chest discomfort, N/V/D. Pt states he continues to have significant wheezing. He denies any coughing with eating. Family History: Unchanged from Admission Social History: Unchanged from Admission Past Medical History: Unchanged from Admission Objective Active Medications: Acetaminophen (Tylenol Tab*) 650 mg PO Q4H PRN Reason: FEVER/PAIN Al Hydrox/Mg Hydrox/Simethicone (Maalox Plus*) 30 ml PO Q6H PRN Reason: INDIGESTION Albuterol/Ipratropium (Duoneb (Albuterol 2.5 Mg/Ipratropium 0.5 Mg)) 1 neb INH Q4H PRN Reason: SOB/WHEEZING Albuterol/Ipratropium (Duoneb (Albuterol 2.5 Mg/Ipratropium 0.5 Mg)) 1 neb INH [id number] AWAKE TENA Carvedilol (Coreg Tab*) 6.25 mg PO BID TENA Docusate Sodium (Colace Cap*) 100 mg PO BID TENA Donepezil HCl (Aricept Tab*) 10 mg PO DAILY TENA Furosemide (Lasix Tab*) 40 mg PO DAILY PRN Reason: Edema Heparin Sodium (Porcine) (Heparin Vial(*)) 5,000 units SUBCUT Q8HR TENA Piperacillin Sod/Tazobactam (Sod 3.375 gm/ Sodium Chloride) 100 mls @ 25 mls/ hr IVPB Q8H TENA Lamotrigine (Lamictal Tab(*)) 50 mg PO BID TENA Methylprednisolone Sodium Succinate (Solu-Medrol 40 Mg) 40 mg IV Q8H TENA Omeprazole (Prilosec Cap*) 40 mg PO DAILY [facility] Pharmacy Consult (Zosyn Per Pharmacy*) 1 note FOLLOW UP .ZOSYN PER PHARMACY TENA Primidone (Mysoline Tab(*)) 50 mg PO QAM TENA Primidone (Mysoline Tab(*)) 100 mg PO QPM TENA Tamsulosin HCl (Flomax Cap*) 0.4 mg PO DAILY [facility] Vital Signs - 8 hr 10/01/17 10/01/17 10/01/17 04:06 07:11 07:16 Temperature 98.0 F 97.7 F Pulse Rate 73 76 83 Respiratory 18 20 Rate Blood Pressure 110/64 115/59 (mmHg) O2 Sat by Pulse 96 94 91 Oximetry Oxygen Devices in Use Now: None Appearance: NAD, sitting up on the side of the bed Ears/Nose/Mouth/Throat: Mucous Membranes Moist Respiratory: Symmetrical Chest Expansion and Respiratory Effort, - - Lung sounds with rhonchi bilateral and exp wheeze bilateral Cardiovascular: NL Sounds; No Murmurs; No JVD, RRR Abdominal: NL Sounds; No Tenderness; No Distention Extremities: No Edema Skin: No Rash or Ulcers Neurological: Alert and Oriented x 3, NL Muscle Strength and Tone Lines/Tubes/Other Access: Clean, Dry and Intact Peripheral IV - site benign Nutrition: Taking PO's Result Diagrams: 10/01/17 06:20 10/01/17 06:20 Microbiology and Other Data: Microbiology 09/30/17 20:00 Gram Stain - Final Sputum 09/30/17 17:30 Legionella Urinary Antigen - Final Urine Negative Legionella Antigen Streptococcus pneumoniae Ag Screen - Final Negative S. pneumo Antigen Assess/Plan/Problems-Billing Assessment: Mr. Estrada is a 81 yo with PMH significant for mild cognitive impairment, benign tremor, ICD, CAD, GERD, COPD with chronic hypoxic respiratory failure, and history of renal insufficiency who presented to the hospital complaining of worsening of his symptoms of shortness of breath and cough. - Patient Problems (1) Pneumonia Code(s): J18.9 - PNEUMONIA, UNSPECIFIED ORGANISM SNOMED Code(s): 421153723 Comment: - Right middle lobe - Afebrile, leukocytosis improving, and no tachycardia or tachypnea - Legionella and strep pneumo antigens negative - Continue Zosyn (started on ceftriazone and azithromycin but had reaction to azithromycin) (2) COPD exacerbation Code(s): J44.1 - CHRONIC OBSTRUCTIVE PULMONARY DISEASE W (ACUTE) EXACERBATION SNOMED Code(s): 596610689789651 Comment: - Improving, suspect secondary to PNA - Continue steroids and nebs (3) Elevated troponin Code(s): R74.8 - ABNORMAL LEVELS OF OTHER SERUM ENZYMES SNOMED Code(s): 750334323 Comment: - Denies chest pain - Appears to be at baseline (4) CKD (chronic kidney disease), stage III Code(s): N18.3 - CHRONIC KIDNEY DISEASE, STAGE 3 (MODERATE) SNOMED Code(s): 777274967 Comment: - At baseline (5) Benign essential tremor Code(s): G25.0 - ESSENTIAL TREMOR SNOMED Code(s): 739360799 Comment: - Continue primidone (6) History of coronary artery disease Code(s): Z86.79 - PERSONAL HISTORY OF OTHER DISEASES OF THE CIRCULATORY SYSTEM SNOMED Code(s): 941054290 Comment: - No signs of ACS at this time, denies chest pain - Continue Coreg and statin (7) Cognitive impairment Code(s): R41.89 - OT SYMPTOMS AND SIGNS W COGNITIVE FUNCTIONS AND AWARENESS SNOMED Code(s): 232963378 Comment: - Mild - Continue aricept and supportive care (8) DVT prophylaxis Code(s): JPQ7614 - SNOMED Code(s): 367895927 Comment: - Heparin SQ (9) Full code status Code(s): Z78.9 - OTHER SPECIFIED HEALTH STATUS SNOMED Code(s): 128374939 Status and Disposition: Inpatient. Discharge to home when medically stable.
[2017-10-01] MEDS: Albuterol/Ipratropium NEB.SOL* Albuterol 2.5 MG/Ipratropium 0.5 MG 3 ML INH ONE (13:39)
[2017-10-02] MEDS: Albuterol/Ipratropium NEB.SOL* Albuterol 2.5 MG/Ipratropium 0.5 MG 3 ML INH SCH ×2 (01:52→07:16)
[2017-10-02] MEDS: methylPREDNISolone SOD 40 MG* 1 ML VIAL IV SCH ×2 (02:37→08:56)
[2017-10-02] MEDS: ZOSYN 3.375 GM Q8H per EXTENDED INFUSION IVPB SCH ×4 (04:18→12:22)
[2017-10-02] MEDS: Heparin VIAL(*) 5000 UNITS/ML VIAL (FIVE THOUSAND) SUBCUT SCH (05:58)
[2017-10-02 06:23] LABS: ABS Basophils 0 10^3/ul (0-0.2); ABS Eosinophils 0 10^3/ul (0-0.6); ABS Lymphocytes 0.5 10^3/ul (1.0-4.8); ABS Monocytes 0.4 10^3/ul (0-0.8); ABS Neutrophils 11.9 10^3/ul (1.5-7.7); ABS Nucleated RBC 0 10^3/ul; Eosinophil % 0 % (0-6); Hematocrit 44 % (42-52); Hemoglobin 14.7 g/dl (14.0-18.0); Lymphocyte % 3.7 % (25-47); Mean Corpuscular HGB Conc 34 g/dl (31-36); Mean Corpuscular Hemoglobin 32 pg (27-31); Mean Corpuscular Volume 95 fL (80-94); Mean Platelet Volume 8.2 um3 (7.4-10.4); Nucleated Red Blood Cells % 0.1; Platelet Count 131 10^3/ul (150-450); Red Blood Count 4.63 10^6/ul (4.0-5.4); Red Cell Distribution Width 13 % (10.5-15); White Blood Count 12.8 10^3/ul (3.5-10.8)
[2017-10-02 06:41] LABS: EGFR Non-African American 60.6 (>60)
[2017-10-02 08:48] VITALS: BP 106/54
[2017-10-02] MEDS: Tamsulosin CAP* 0.4 MG PO SCH (08:58)
[2017-10-02] MEDS: Primidone TAB(*) 50 MG PO SCH (08:58)
[2017-10-02] MEDS: lamoTRIgine TAB(*) 25 MG PO SCH (08:58)
[2017-10-02] MEDS: Docusate CAP* 100 MG PO SCH (08:58)
[2017-10-02] MEDS: Omeprazole CAP* 20 MG PO SCH (08:58)
[2017-10-02] MEDS: Carvedilol TAB* 6.25 MG PO SCH (08:58)
[2017-10-02] MEDS: Donepezil TAB* 5 MG PO SCH (08:58)
--- NOTE | 2017-10-02 11:52 | PN ---
Subjective Date of Service: 10/02/17 Interval History: Patient seen and examined at bedside. Denies fever, chills, shortness of breath , chest discomfort, N/V/D. Continues to report a non-productive cough and wheezing. Reports feeling better over all. Family History: Unchanged from Admission Social History: Unchanged from Admission Past Medical History: Unchanged from Admission Objective Active Medications: Acetaminophen (Tylenol Tab*) 650 mg PO Q4H PRN Reason: FEVER/PAIN Al Hydrox/Mg Hydrox/Simethicone (Maalox Plus*) 30 ml PO Q6H PRN Reason: INDIGESTION Albuterol/Ipratropium (Duoneb (Albuterol 2.5 Mg/Ipratropium 0.5 Mg)) 1 neb INH Q4H PRN Reason: SOB/WHEEZING Albuterol/Ipratropium (Duoneb (Albuterol 2.5 Mg/Ipratropium 0.5 Mg)) 1 neb INH [id number] AWAKE TENA Carvedilol (Coreg Tab*) 6.25 mg PO BID TENA Docusate Sodium (Colace Cap*) 100 mg PO BID TENA Donepezil HCl (Aricept Tab*) 10 mg PO DAILY TENA Furosemide (Lasix Tab*) 40 mg PO DAILY PRN Reason: Edema Heparin Sodium (Porcine) (Heparin Vial(*)) 5,000 units SUBCUT Q8HR TENA Piperacillin Sod/Tazobactam (Sod 3.375 gm/ Sodium Chloride) 100 mls @ 25 mls/ hr IVPB Q8H [facility] Lamotrigine (Lamictal Tab(*)) 50 mg PO BID [facility] Methylprednisolone Sodium Succinate (Solu-Medrol 40 Mg) 40 mg IV Q8H TENA Omeprazole (Prilosec Cap*) 40 mg PO DAILY [facility] Pharmacy Consult (Zosyn Per Pharmacy*) 1 note FOLLOW UP .ZOSYN PER PHARMACY TENA Primidone (Mysoline Tab(*)) 50 mg PO QAM TENA Primidone (Mysoline Tab(*)) 100 mg PO QPM [facility] Tamsulosin HCl (Flomax Cap*) 0.4 mg PO DAILY [facility] Vital Signs - 8 hr 10/02/17 10/02/17 10/02/17 07:17 08:00 08:22 Temperature 97.6 F Pulse Rate 84 68 Respiratory 14 18 20 Rate Blood Pressure 106/54 (mmHg) O2 Sat by Pulse 91 94 Oximetry Oxygen Devices in Use Now: None Appearance: NAD, sitting up in bed Ears/Nose/Mouth/Throat: Mucous Membranes Moist Respiratory: Symmetrical Chest Expansion and Respiratory Effort, Clear to Auscultation - anterior. Posterior with exp wheezing bilateral Cardiovascular: NL Sounds; No Murmurs; No JVD, RRR Abdominal: NL Sounds; No Tenderness; No Distention Extremities: No Edema Skin: No Rash or Ulcers Neurological: Alert and Oriented x 3, NL Muscle Strength and Tone Lines/Tubes/Other Access: Clean, Dry and Intact Peripheral IV - site benign Nutrition: Taking PO's Result Diagrams: 10/02/17 05:48 10/02/17 05:48 Microbiology and Other Data: Microbiology 09/30/17 20:00 Gram Stain - Final Sputum 09/30/17 17:30 Legionella Urinary Antigen - Final Urine Negative Legionella Antigen Streptococcus pneumoniae Ag Screen - Final Negative S. pneumo Antigen Assess/Plan/Problems-Billing Assessment: Mr. Estrada is a 81 yo with PMH significant for mild cognitive impairment, benign tremor, ICD, CAD, GERD, COPD with chronic hypoxic respiratory failure, and history of renal insufficiency who presented to the hospital complaining of worsening of his symptoms of shortness of breath and cough. - Patient Problems (1) Pneumonia Code(s): J18.9 - PNEUMONIA, UNSPECIFIED ORGANISM SNOMED Code(s): 268845328 Comment: - Right middle lobe - Afebrile, leukocytosis, and no tachycardia or tachypnea - Legionella and strep pneumo antigens negative - Change to augmentin at discharge (2) COPD exacerbation Code(s): J44.1 - CHRONIC OBSTRUCTIVE PULMONARY DISEASE W (ACUTE) EXACERBATION SNOMED Code(s): 486297875975215 Comment: - Improving, suspect secondary to PNA - Continue steroids and nebs (3) Elevated troponin Code(s): R74.8 - ABNORMAL LEVELS OF OTHER SERUM ENZYMES SNOMED Code(s): 860598177 Comment: - Denies chest pain - Appears to be at baseline (4) CKD (chronic kidney disease), stage III Code(s): N18.3 - CHRONIC KIDNEY DISEASE, STAGE 3 (MODERATE) SNOMED Code(s): 404929038 Comment: - At baseline (5) Benign essential tremor Code(s): G25.0 - ESSENTIAL TREMOR SNOMED Code(s): 264978441 Comment: - Continue primidone (6) History of coronary artery disease Code(s): Z86.79 - PERSONAL HISTORY OF OTHER DISEASES OF THE CIRCULATORY SYSTEM SNOMED Code(s): 324337397 Comment: - No signs of ACS at this time, denies chest pain - Continue Coreg and statin (7) Cognitive impairment Code(s): R41.89 - OTH SYMPTOMS AND SIGNS W COGNITIVE FUNCTIONS AND AWARENESS SNOMED Code(s): 187757679 Comment: - Mild - Continue aricept and supportive care (8) DVT prophylaxis Code(s): DGW6844 - SNOMED Code(s): 637458785 Comment: - Heparin SQ (9) Full code status Code(s): Z78.9 - OTHER SPECIFIED HEALTH STATUS SNOMED Code(s): 622429343 Status and Disposition: Inpatient. Discharge to home when medically stable.
--- NOTE | 2017-10-03 19:09 | DS ---
CC: Dr. Александр Astorga; Dr. Elsa Perry. * DISCHARGE SUMMARY: DATE OF ADMISSION: 09/30/17 DATE OF DISCHARGE: 10/02/17 ATTENDING PHYSICIAN: Dr. Antoine Mckeon * (dictated by Cindy Medina NP). PRIMARY CARE PROVIDER: Dr. Александр Astorga. FOUNTAIN MANAGER: Dr. Elsa Perry. PRIMARY DIAGNOSES: 1. Right middle lobe pneumonia. 2. Chronic obstructive pulmonary disease exacerbation. SECONDARY DIAGNOSES: 1. Mild cognitive impairment. 2. Mild renal insufficiency. 3. Coronary artery disease. 4. Gastroesophageal reflux disease. 5. Chronic obstructive pulmonary disease. STUDIES WHILE IN THE HOSPITAL: Chest x-ray on 09/30/17. Radiologist's, impression: Patchy consolidation of right middle lobe. Recommend follow up into resolution to exclude underlying pulmonary parenchymal pathology. DISCHARGE MEDICATIONS: New home medication: 1. Augmentin 875 mg oral twice daily for 8 more days to complete a 10-day course of antibiotics. Continue home medications: 1. Primidone 50 mg oral every morning. 2. Primidone 100 mg oral every evening. 3. Nitroglycerin 0.4 mg sublingual every 5 minutes as needed for angina. 4. Furosemide 40 mg oral daily as needed for lower extremity edema. 5. Carvedilol 6.25 mg oral twice daily. 6. Anoro 62.5/25, Ellipta device, 1 inhalation daily. 7. Flaxseed oil 2400 mg oral twice daily. 8. Lamictal 50 mg oral twice daily. 9. Rosuvastatin 20 mg oral every morning. 10. Flovent Diskus 100 mg inhalation twice daily. 11. Atrovent nebulizer 0.5 mg inhalation every 4 hours as needed for shortness of breath or wheeze. 12. Aricept 10 mg oral daily. 13. Omeprazole 40 mg oral daily. 14. Tamsulosin 0.4 mg oral daily. 15. Turmeric 500 mg oral daily. Changed home medication: 1. Prednisone changed to 60 mg oral daily for 2 days followed by 40 mg oral for 2 days, 20 mg oral for 2 days, 10 mg oral for 2 days and then stop. HISTORY OF PRESENT ILLNESS/HOSPITAL COURSE: Mr. Estraad is an 82-year-old male with past medical history significant for mild cognitive impairment, benign tremor, mild renal insufficiency, chronic kidney disease with stable angina, GERD, COPD, who was seen by Dr. Perry approximately 5 days prior to his presentation when he was started on prednisone and doxycycline for suspected COPD exacerbation. When his symptoms continued to worsen, he presented to the emergency room for further evaluation. While in the emergency room, the patient had a chest x-ray showing right middle lobe patchy consolidation consistent with pneumonia. He was admitted for treatment of IV antibiotics. While in the hospital, the patient initially received ceftriaxone and azithromycin. He had a localized skin reaction to azithromycin at the infusion site. This was discontinued. He was transitioned to Zosyn. The patient continued to have some wheezing that did improve during his stay. He was also placed on Solu-Medrol. The patient was afebrile, continued to have a mild leukocytosis. It is to note that in the ER, he had a troponin of 0.04, this appears to be his baseline troponin. His creatinine appeared to be at his baseline, a mildly elevated CRP at 8.71. He is doing well, ambulating, and anxious for discharge home. Mr. Estrada is stable for discharge to home today. Vitals are as follows: Temperature 97.6, heart rate 68, respiratory rate 20, O2 sat 94% on room air, and blood pressure 106/54. DISCHARGE PLAN: Mr. Estrada will be discharged to home. Activity as tolerated. He should be on a heart healthy diet. In regards to his pneumonia, he should continue taking Augmentin 875 mg oral twice daily for 8 more days to complete a 10-day course. He is being placed on a prednisone taper. He will take 60 mg oral daily for 2 days, 40 mg oral daily for 2 days, 20 mg oral daily for 2 days , and then 10 mg oral daily for 2 days and then stop. Dr. Astorga's office will call the patient with a followup appointment for the next week. The patient and his have been instructed to call Dr. Astorga's office if they do not hear from him by Saturday to set up a followup appointment. Additionally, they have been asked to keep their followup appointment and tests coming up with Dr. Perry in October and they have been instructed that if they feel that he is not getting any better or worsening, to call Dr. Perry to be seen sooner. He has been resumed on his other usual home medications. He has been asked to return to the emergency room for any increased shortness of breath or chest pain. This is a summarized report of a complex medical history and hospital stay. For further details, please see the entire medical record. TIME SPENT: Time for this discharge was approximately 50 minutes, greater than half of that was spent with the patient and his discussing on discharge plans and instructions. CONDITION ON DISCHARGE: Stable. CINDY FRIEDMAN, VIKTOR [id number]/[facility] #: [id number] BANG
== END 2017-10-02 13:00 | disposition home or self-care (01) | DRG 190 ==
LOC: ED 05:30 → MED 10:22
PROVIDERS: ADMIT Internal Medicine; ATTEND Student in an Organized Health Care Education/Training Program
DX: J44.1 Chronic obstructive pulmonary disease with (acute) exacerbation (principal); J18.9 Pneumonia, unspecified organism; J96.11 Chronic respiratory failure with hypoxia; J44.0 Chronic obstructive pulmonary disease with (acute) lower respiratory infection; G31.84 Mild cognitive impairment of uncertain or unknown etiology; I25.10 Atherosclerotic heart disease of native coronary artery without angina pectoris; K21.9 Gastro-esophageal reflux disease without esophagitis; E86.0 Dehydration; N18.3 Chronic kidney disease, stage 3 (moderate); E78.5 Hyperlipidemia, unspecified; M19.90 Unspecified osteoarthritis, unspecified site; R74.8 Abnormal levels of other serum enzymes; G25.0 Essential tremor; L29.8 Other pruritus; T36.3X5A Adverse effect of macrolides, initial encounter; Z79.51 Long term (current) use of inhaled steroids; Z95.810 Presence of automatic (implantable) cardiac defibrillator; Z83.3 Family history of diabetes mellitus; Z82.49 Family history of ischemic heart disease and other diseases of the circulatory system; Z80.9 Family history of malignant neoplasm, unspecified; Z87.891 Personal history of nicotine dependence; Z88.1 Allergy status to other antibiotic agents; I25.2 Old myocardial infarction; Z82.3 Family history of stroke; Z99.81 Dependence on supplemental oxygen
CPT/HCPCS: 36415; 71046; 80048; 80053; 83605; 83880; 84484; 85025; 85610; 86140; 87040; 87070; 87205; 87899; 93005; 94640; 99285; A9270-GY; J0456; J0696; J1644; J2543; J2920

== ENCOUNTER 2018-08-07 16:35 | Emergency (ER) | payer MEDICARE, BC ==
--- NOTE | 2018-08-07 16:42 | UC ---
Respiratory Complaint HPI - HPI Summary HPI Summary: 82 yo male presents with productive cough, SOB, decreased appetite, and fatigue for the last week getting progressively worse. He tells me that he has an extensive medical hx including COPD, pacemaker, HTN, HLD, BPH, and CKD. He was in [place] with his for the last 3-4 months and returned a few days ago. He began to get sick about a week ago with a dry cough that turned into a productive cough and SOB. He has inhalers and a nebulizer at home that he has been using as directed with minimal relief - last use of Duoneb was about 1.5 hours BOX [employer]. He tells me that his usual baseline O2% is around 96% (he is 93% today at rest RA). He does not use oxygen. He denies fever, chills, chest pain, abdominal pain, n/v. - History of Current Complaint Stated Complaint: COUGH Time Seen by Provider: 08/07/18 16:42 Hx Obtained From: Patient Onset/Duration: Gradual Onset Severity Initially: Moderate Severity Currently: Moderate Pain Intensity: 5 Pain Scale Used: 0-10 Numeric Character: Cough: Productive - Allergies/Home Medications Allergies/Adverse Reactions: Allergies Allergy/AdvReac Type Severity Reaction Status Date / Time levofloxacin [From Levaquin] Allergy Intermediate hallucinations, Verified 08/07 16:51 worsening breathing azithromycin Allergy Pain Verified 08/07/18 16:51 PMH/Surg Hx/FS Hx/Imm Hx - Additional Past Medical History Additional PMH: Cataracts BPH CKD Dementia Endocrine History: Dyslipidemia Cardiovascular History: Hypertension, Pacemaker/ICD, Congestive Heart Failure Respiratory History: COPD GI/ History: Gastroesophageal Reflux - Surgical History Surgical History: Yes Surgery Procedure, Year, and Place: Pacemaker, Defribillator - Family History Known Family History: Positive: Cardiac Disease, Other - Stroke - Social History Occupation: Retired Lives: With Family Alcohol Use: Occasionally Substance Use Type: None Smoking Status (MU): Former Smoker - Immunization History Most Recent Influenza Vaccination: 2017 Most Recent Pneumonia Vaccination: 2014 Review of Systems All Other Systems Reviewed And Are Negative: Yes Constitutional: Positive: Fatigue Skin: Positive: Negative Eyes: Positive: Negative ENT: Positive: Negative Respiratory: Positive: Shortness Of Breath, Cough Cardiovascular: Positive: Negative Gastrointestinal: Positive: Negative Neurovascular: Positive: Negative Musculoskeletal: Positive: Negative Psychological: Positive: Negative Physical Exam - Summary Physical Exam Summary: GENERAL: NAD. WDWN. No pain distress. SKIN: No rashes, sores, lesions, or open wounds. HEENT: Head: AT/NC Eyes: Conjunctiva clear without inflammation or discharge. Ears: Hearing grossly normal. TMs intact, no bulging, erythema, or edema. Nose: Nasal mucosa pink and moist. NTTP maxillary and frontal sinus. Throat: Posterior oropharynx without exudates, erythema, or tonsillar enlargement. Uvula midline. NECK: Supple. Nontender. No lymphadenopathy. CHEST: Moderate wheezing throughout. Decreased breath sounds throughout. No accessory muscle use. Breathing comfortably and in no distress. CV: Pulses intact. Cap refill <2seconds NEURO: Alert. PSYCH: Age appropriate behavior. Triage Information Reviewed: Yes Vital Signs: Vital Signs: Temp Pulse Resp BP Pulse Ox 99.3 F 74 18 139/60 93 08/07/18 16:42 08/07/18 16:42 08/07/18 16:42 08/07/18 16:42 08/07/18 16:42 Vital Signs Reviewed: Yes Respiratory Course/Dx - Course Course Of Treatment: CXR: IMPRESSION: FINDINGS SUGGESTIVE OF COPD, NO EVIDENCE FOR ACUTE FINDING. Duoneb: No change. Still coughing. He presented with O2% at 93% RA resting. This was rechecked after duoneb and found to be 94%. A walking O2% was performed and ranged from 93-94%. 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 Suspect COPD exacerbation. will place him on 50mg of prednisone for 4 days and Augmentin for 7 days. Encouraged to f/u with Dr. Perry of pulm as soon as possible for a recheck. - Differential Dx/Diagnosis Provider Diagnosis: COPD exacerbation Discharge - Sign-Out/Discharge Documenting (check all that apply): Patient Departure All imaging exams completed and their final reports reviewed: Yes - Discharge Plan Condition: Stable Disposition: HOME Prescriptions: Amoxicillin/Clavulanate TAB* [Augmentin TAB 875*] 875 mg PO BID #14 tab predniSONE TAB* [Deltasone TAB*] 50 mg PO DAILY #4 tab Patient Education Materials: COPD (Chronic Obstructive Pulmonary Disease) (ED) Referrals: Rizwan TATE,Александр Rahman [Primary Care Provider] - Elsa Perry MD [Medical Doctor] - As Soon As Possible Additional Instructions: If you develop a fever, shortness of breath, chest pain, new or worsening symptoms - please call your PCP or go to the ED. Please call Dr. Perry's office tomorrow to schedule a follow up appointment as soon as possible - Billing Disposition and Condition Condition: STABLE Disposition: Home
[2018-08-07 16:50] VITALS: BP 139/60
[2018-08-07] MEDS ORDERED: Albuterol/Ipratropium NEB.SOL* Albuterol 2.5 MG/Ipratropium 0.5 MG 3 ML INH ONE (16:58)
== END 2018-08-07 18:05 | disposition home or self-care (01) ==
LOC: UCEAST 16:35
DX: J44.1 Chronic obstructive pulmonary disease with (acute) exacerbation (principal); E78.5 Hyperlipidemia, unspecified; Z95.0 Presence of cardiac pacemaker; Z88.1 Allergy status to other antibiotic agents; I12.9 Hypertensive chronic kidney disease with stage 1 through stage 4 chronic kidney disease, or unspecified chronic kidney disease; N18.9 Chronic kidney disease, unspecified
CPT/HCPCS: 71046; 99212; A9270-GY; G0463

== ENCOUNTER 2018-08-12 06:15 | Emergency (ER) | payer MEDICARE, BC ==
[2018-08-12] MEDS ORDERED: Albuterol/Ipratropium NEB.SOL* Albuterol 2.5 MG/Ipratropium 0.5 MG 3 ML INH ONE (06:29)
--- NOTE | 2018-08-12 06:39 | ED ---
Shortness of Breath - HPI Summary HPI Summary: Patient is a 82yo M with a hx of COPD and [place] presenting to the ED with CC of SOB x 5 days which has progressively been worsening. Patient was seen in the urgent care 5 days ago and was given prednisone and Augmentin. He states despite these medications, he has been worsening. He does have a history of [place] in 1997, was treated by Dr. Berrios and has been followed by cardiology at [place], [place]. Hx of HTN and HCL and taking medications for such. He is also followed by Dr. Perry and has a f/u appt on 08/25/18. Pt is endorsing midsternal CP which is non-radiating and described as a "pressure." He states this is not normal for him during his asthma exacerbation. He states he has been coughing so hard, he is unable to catch his breath which is concerning for him. He has been otherwise well, denies any other flu like sxs, ENCARNACION, abd pain, weakness, urinary sxs. Current medications include ipratropium bromide nebulizer treatments 2-3 times daily, Crestor and Carvedilol. Lasix as needed, but has not been using. VS on arrival are stable: 97.6, 100, respirations 23, 96% on RA, 159/95. - History of Current Complaint Chief Complaint: EDRespiratoryDistress Time Seen by Provider: 08/12/18 06:20 Hx Obtained From: Patient Onset/Duration: Gradual Onset Timing: Constant Current Severity: Moderate Dyspnea At: Rest Alleviating Factors: Nothing Associated Signs & Symptoms: Cough (Nonproductive), Wheezing - Risk Factors Pulmonary Embolism: Negative Cardiac: Prior [place], Elevated lipids, Hypertension Pseudomonas: Chronic Lung Disease Tuberculosis: Chronic Respiratory Failure - Allergy/Home Medications Allergies/Adverse Reactions: Allergies Allergy/AdvReac Type Severity Reaction Status Date / Time levofloxacin [From Levaquin] Allergy Intermediate hallucinations, Verified 08/12 06:19 worsening breathing azithromycin Allergy Pain Verified 08/12/18 06:19 Home Medications: Home Medications Aspirin 81 mg CHEW TAB* [Aspirin Low Dose TAB*] 81 mg PO DAILY 08/12/18 [ History Confirmed 08/12/18] Fluticasone/Umeclidin/Vilanter [Trelegy Ellipta 100-62.5-25] 1 puff INH DAILY [History Confirmed 08/12/18] Ranitidine TAB (NF) [Zantac TAB (NF)] 150 mg PO BID 08/12/18 [History Confirmed 08/12/18] Saw Sussex Fruit [Saw Sussex] 450 mg PO BID 08/12/18 [History Confirmed 01/22] predniSONE [Prednisone 5 MG TAB] 2.5 mg PO DAILY 08/12/18 [History Confirmed 01/22] PMH/Surg Hx/FS Hx/Imm Hx Previously Healthy: Yes Endocrine/Hematology History: Denies: Hx Diabetes Cardiovascular History: Reports: Hx Coronary Artery Disease, Hx Myocardial Infarction - 1997, Hx Pacemaker/ICD - difibrillator in place, Other Cardiovascular Problems/Disorders - Heart disease; Denies: Hx Hypertension Respiratory History: Reports: Hx Chronic Obstructive Pulmonary Disease (COPD) Denies: Hx Asthma GI History: Reports: Hx Gastroesophageal Reflux Disease, Other GI Disorders - Stomach problems History: Denies: Hx Renal Disease Musculoskeletal History: Reports: Hx Arthritis Sensory History: Denies: Hx Contacts or Glasses, Hx Hearing Aid Opthamlomology History: Denies: Hx Contacts or Glasses - Surgical History Surgery Procedure, Year, and Place: Pacemaker, Defribillator - Immunization History Hx Pertussis Vaccination: No Immunizations Up to Date: Yes Infectious Disease History: No Infectious Disease History: Denies: Traveled Outside the [place] in Last 30 Days - Family History Known Family History: Positive: Cardiac Disease, Other - Stroke - Social History Occupation: Unemployed Lives: With Family Alcohol Use: Occasionally Hx Substance Use: No Substance Use Type: Reports: None Hx Tobacco Use: Yes Smoking Status (MU): Former Smoker Review of Systems Constitutional: Negative Negative: Fever, Chills, Fatigue, Skin Diaphoresis Negative: Dental Pain, Sore Throat Positive: Chest Pain - midstneral - non-radiating Positive: Shortness Of Breath, Cough Negative: Abdominal Pain, Vomiting, Diarrhea, Nausea Genitourinary: Negative Positive: no symptoms reported, see HPI Negative: Arthralgia, Myalgia Skin: Negative All Other Systems Reviewed And Are Negative: Yes Physical Exam - Summary Physical Exam Summary: Patient appears in no acute distress, comfortable on arrival. Triage Information Reviewed: Yes Vital Signs On Initial Exam: Initial Vitals Temp Pulse Resp BP Pulse Ox 97.6 F 100 23 159/95 96 08/12/18 06:18 08/12/18 06:18 08/12/18 06:18 08/12/18 06:18 08/12/18 06:18 Vital Signs Reviewed: Yes Appearance: Positive: Well-Appearing, Well-Nourished Skin: Positive: Warm, Skin Color Reflects Adequate Perfusion Head/Face: Positive: Normal Head/Face Inspection Eyes: Positive: EOMI, Conjunctiva Clear Neck: Positive: Supple, No Lymphadenopathy Respiratory/Lung Sounds: Positive: Wheezes. Negative: Decreased Breath Sounds, Rales, Rhonchi, Stridor, Tracheal Deviation, Unable to speak in full sentences, Fatigue Cardiovascular: Positive: Pulses are Symmetrical in both Upper and Lower Extremities, Tachycardia - 100. Negative: Leg Edema Left, Leg Edema Right Musculoskeletal: Positive: Normal, Strength/ROM Intact Neurological: Positive: Sensory/Motor Intact, Alert, Oriented to Person Place, Time, Speech Normal Psychiatric: Positive: Normal, Affect/Mood Appropriate AVPU Assessment: Alert Diagnostics - Vital Signs Vital Signs Temp Pulse Resp BP Pulse Ox 08/12/18 06:18 97.6 F 100 23 159/95 96 - Laboratory Result Diagrams: 08/12/18 06:44 08/12/18 06:44 Lab Statement: Any lab studies that have been ordered have been reviewed, and results considered in the medical decision making process. - EKG EKG Cardiac Rate: Bradycardia ST Segment: Normal Ectopy: None EKG Comparison: Other - RBBB, no significant change Course/Dx - Course Course Of Treatment: During the treatment the patient's evaluated for shortness of breath and coughing. He states he's been on prednisone and Augmentin without relief. He endorses worsening shortness of breath with cough, cough is without production. Chest x-ray obtained which is no acute findings. Labs obtained which show troponin of 0.07, however this is normal for the patient. EKG shows no changes. BNP is elevated at 6.1, however this is usually in the 300s. He does have Lasix at home, however has not been using this as this is scheduled as when necessary for when he has leg edema. He is endorsed some burning sensation to his feet which usually means that are swollen, per patient. On arrival to the ED he is given 1 DuoNeb with minor improvement. He is given 40 mg Lasix with good improvement and denies any shortness of breath at this time. He denies any symptoms at this time. Patient will remain on Lasix 40 mg 3 days and then reduced dose to 20 mg until follow up with PCP this week or next week. He understands to return to the ED if he has any worsening or changing symptoms. He will continue his nebulizer treatments at home only as needed. - Diagnoses Differential Diagnosis/HQI/PQRI: Positive: Asthma, CHF, COPD Exacerbation, Other Provider Diagnoses: CHF (congestive heart failure) Discharge - Sign-Out/Discharge Documenting (check all that apply): Patient Departure Patient Received Moderate/Deep Sedation with Procedure: No - Discharge Plan Condition: Stable Disposition: HOME Prescriptions: Furosemide TAB* [Lasix TAB*] 20 mg PO SEE INSTRUCTIONS #20 tab Patient Education Materials: Heart Failure (ED) Referrals: Rizwan TATE,Александр Rahman [Primary Care Provider] - Additional Instructions: As discussed, you have fluid around your heart which is treated well with a diuretic. You have lasix at home to which you are not currently taking We will place you on a low dose x 3 days to help with the fluid, which will help with the coughing/shortness of breath Take your lasix dose of 40mg per day x 3 days If you continue to cough or swelling of the legs, continue this further If after 3 days you are feeling improved, reduce your dose to 20mg daily and discontinue if you are feeling back to your baseline Please follow up with your PCP regarding this and to obtain further instructions If symptoms worsen, you may return to the ED - Billing Disposition and Condition Condition: STABLE Disposition: Home
[2018-08-12 06:51] LABS: Hematocrit 48 % (36-46); Hemoglobin 16.1 g/dL (14.0-18.0); Mean Corpuscular HGB Conc 34 g/dL (31-36); Mean Corpuscular Hemoglobin 32 pg (27-31); Mean Corpuscular Volume 96 fL (80-94); Mean Platelet Volume 7.6 fL (7.4-10.4); Platelet Count 141 10^3/uL (150-450); Red Blood Count 4.98 10^6 /uL (4.18-5.48); Red Cell Distribution Width 13 % (10.5-15); White Blood Count 8.1 10^3/uL (3.5-10.8)
[2018-08-12 07:02] LABS: INR 0.97 (0.77-1.02)
[2018-08-12 07:08] LABS: Albumin 3.8 g/dL (3.2-5.2); Albumin/Globulin Ratio 1.7 (1-3); BUN/Creatinine Ratio 20.8 (8-20); C Reactive Protein 5.56 mg/L (<8.01); Calcium 8.9 mg/dL (8.6-10.3); EGFR African American 67.2 (>60); EGFR Non-African American 55.6 (>60); Globulin 2.2 g/dL (2-4); Potassium 3.9 mmol/L (3.5-5.0); Total Bilirubin 0.4 mg/dL (0.2-1.0)
[2018-08-12 07:12] LABS: Troponin I 0.07 ng/mL (<0.04)
[2018-08-12] MEDS ORDERED: Furosemide IV* 10 MG/ML VIAL (40 MG) IV ONE (07:20)
[2018-08-12 07:56] LABS: ABS Basophils 0 10^3/ul (0-0.2); ABS Eosinophils 0.2 10^3/ul (0-0.6); ABS Lymphocytes 1.5 10^3/ul (1.0-4.8); ABS Monocytes 0.8 10^3/ul (0-0.8); ABS Neutrophils 5.6 10^3/ul (1.5-7.7); ABS Nucleated RBC 0 10^3/ul; Eosinophil % 2.3 %; Lymphocyte % 18.8 %; Nucleated Red Blood Cells % 0.1
[2018-08-12 08:24] LABS: Influenza A Molecular NEGATIVE (Negative); Influenza B Molecular NEGATIVE (Negative)
[2018-08-12 08:53] VITALS: BP 126/81
[2018-08-12 09:00] LABS: Urine Appearance Clear; Urine Bacteria Absent (Absent); Urine Bilirubin Negative (Negative); Urine Blood 1+ (Negative); Urine Color Yellow; Urine Glucose Negative (Negative); Urine Ketones Negative (Negative); Urine Nitrite Negative (Negative); Urine Protein Negative (Negative); Urine Red Blood Cell Absent (Absent); Urine Specific Gravity 1.017 (1.010-1.030); Urine Urobilinogen Negative (Negative); Urine White Blood Cell Absent (Absent)
== END 2018-08-12 09:06 | disposition home or self-care (01) ==
LOC: ED 06:15
DX: I50.9 Heart failure, unspecified (principal); I25.10 Atherosclerotic heart disease of native coronary artery without angina pectoris; I25.2 Old myocardial infarction; J44.9 Chronic obstructive pulmonary disease, unspecified
CPT/HCPCS: 36415; 71046; 80053; 81003; 81015; 83605; 83880; 84484; 85025; 85610; 86140; 93005; 96374; 99283; A9270-GY; J1940

== ENCOUNTER 2018-09-15 11:12 | Emergency (ER) | payer MEDICARE, BC ==
--- OUTSIDE RECORDS SUMMARY | 2018-09-15 11:18 | XMS REPORT | Continuity of Care Document ---
:1935 External Reference #:[id number] Author Name Chica Brooke Care Team Providers Name Role Phone Александр Astorga MD Primary Care Physician Unavailable Payers Date Identification Numbers Payment Provider Subscriber Policy Number: [id number] Medicare Christoph Estrada PayID: [id number] [address] [place] [address] Policy Number: [id number] [facility] Christoph Estrada PayID: [id number] [address] [place] [address] Advance Directives Description No Information Available Problems Description No Information Family History Date Family Member(s) Observation Comments General COPD General emphysema Father No Current Problems Father due to CHF () Mother due to Hypertension () Mother Hypertension Siblings 8 1 sister living, the others are . One sister had pulmonary issues Social History Type Date Description Comments Sex Unknown Marital Status Lives With Occupation Retired Tobacco Use Start: Unknown End: Former Cigarette Smoker Smoked for 50 years Unknown and about 1/2 ppd Smoking Status Reviewed: 08/25/18 Former Cigarette Smoker Smoked for 50 years and about 1/2 ppd ETOH Use Denies alcohol use Tobacco Use Start: Unknown End: Patient is a former Unknown smoker Recreational Drug Use Denies Drug Use Exercise Type/Frequency Exercises regularly Allergies, Adverse Reactions, Alerts Description No Information Medications Active Medications SIG Qnty Indications Ordering Date Provider Prednisone 2 by mouth daily 90tabs J44.9 Elsa [place], 01/29/2018 2.5mg for 1 month and 1 MD Tablets daily thereafter Trelegy Ellipta 1 puff daily Unknown 100-62.5-25mcg/Inh Aerosol Tumeric 1 cap qd Unknown 500mg Cap Flaxseed Oil 2 by mouth bid Unknown 1200mg Capsules Ipratropium Inhale The Unknown [place]/Albuterol Contents Of One Sulfate Vial Via Nebulizer Every 4 Hours as 0.5-2.5(3)mg/3ML Needed Solution Furosemide Take 1 Tablet prn Unknown 20mg Tablets Nitroglycerin Place One Tablet Unknown 0.4mg Under The Tongue Tablets Sub Every 5 Minutes For Up To 3 Doses as Rosuvastatin Calcium Take 1 Tablet By Unknown Mouth Once Every 20mg Tablets Morning Carvedilol 1 tab bid Александр Astorga, 6.25mg MD Tablets Lamotrigine 2 tabs 2x day Unknown 25mg Tablets Donepezil HCL Take One Tablet By Unknown 10mg Mouth Every Day Tablets History Medications Spiriva Respimat 2 puffs every day 4uncodi Perry, 11/06/2017 - 01/28/2018 2.5mcg/Act Aerosol Symbicort 2 puff twice a day 30.6gm Elsa [place] 11/06/2017 - 07/07/2018 80-4.5mcg/Act Aerosol Vortex Valved use as instructed 1uncodi Perry, 11/06/2017 - Holding Chamber 01/28/2018 Device Prednisone 1 tab daily 120tabs J44.1 Elsa [place], 09/25/2017 - 5mg 01/29/2018 Tablets Doxycycline Hyclate one tablet twice 14caps J44.1 Elsa Perry, 2017 - daily for 7 days. 10/28/2017 100mg Capsules Omeprazole Take One Capsule Unknown - 40mg By Mouth Twice A 08/24/[address] Day Tamsulosin HCL qd Александр Astorga, - 0.4mg MD 08/24/2018 Capsules Flovent Diskus Inhale One puff By Unknown - Mouth Twice A Day 01/29/2018 100mcg/Blist Aerosol Anoro Ellipta Inhale One puff By Unknown - Mouth Every Day 11/06/2017 62.5-25mcg/Inh Aerosol Primidone 1qam and 2 qpm Unknown - 50mg 08/24/2018 Tablets Immunizations Description No Information Available Vital Signs Date Vital Result Comment 08/25/2018 3:02pm Height 74 inches 6'2" Weight 226.00 lb Heart Rate 74 /min BP Systolic Standing 110 mmHg right upper arm regular cuff BP Diastolic Standing 66 mmHg right upper arm regular cuff Respiratory Rate 16 /min O2 % BldC Oximetry 94 % BMI (Body Mass Index) 29.0 kg/m2 01/29/2018 11:12am Height 74 inches 6'2" Weight 225.25 lb Heart Rate 70 /min BP Systolic Sitting 116 mmHg Lue large cuff BP Diastolic Sitting 74 mmHg Lue large cuff Respiratory Rate 16 /min O2 % BldC Oximetry 95 % BMI (Body Mass Index) 28.9 kg/m2 10/29/2017 9:55am Height 74 inches 6'2" Weight 228.00 lb Heart Rate 72 /min BP Systolic Sitting 122 mmHg BP Diastolic Sitting 80 mmHg Respiratory Rate 14 /min O2 % BldC Oximetry 96 % BMI (Body Mass Index) 29.3 kg/m2 09/25/2017 8:02am Height 74 inches 6'2" Weight 231.00 lb Heart Rate 68 /min BP Systolic Sitting 122 mmHg BP Diastolic Sitting 74 mmHg Respiratory Rate 14 /min O2 % BldC Oximetry 92 % BMI (Body Mass Index) 29.7 kg/m2 Results Description No Information Available Procedures Date Code Description Status 10/16/2017 18364 Diffusing Capacity Completed 10/16/2017 05802 Plethysmography Determination Lung Volumes & Per Airway Completed Resist 10/16/2017 90353 Pulmonary Stress Testing, Inc Measurement Heart Rate, Completed Oximetry Encounters Type Date Location Provider Dx Diagnosis Office Visit 01/29/2018 Pulmonology And Elsa Perry J44.9 Chronic obstructive 11:30a [facility] pulmonary disease, [place] unspecified J45.909 Unspecified asthma, uncomplicated E66.09 Other obesity due to excess calories Office Visit 10/29/2017 10:15a Pulmonology And Elsa J44.9 Chronic [facility] [place] obstructive [place] Winder pulmonary disease, unspecified J45.909 Unspecified asthma, uncomplicated E66.09 Other obesity due to excess calories Office Visit 2017 [facility] Lacy Giron J18.1 Lobar pneumonia, 11:04a 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,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, 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 unspecified Hospitalists organism J41.1 Mucopurulent chronic bronchitis Office Visit 09/25/2017 8:30a Pulmonology And Elsa J44.1 Chronic [facility] [place] obstructive [place] pulmonary disease w (acute) exacerbation Z87.891 Personal history of nicotine dependence K21.9 Gastro-esophageal reflux disease without esophagitis E66.09 Other obesity due to excess calories Z68.29 Body mass index (BMI) 29.0-29.9, adult Office Visit 03/09/2017 [facility] Ana Garnett, J18.9 Pneumonia, 6:42a shanna Banuelos M.D. 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
--- OUTSIDE RECORDS SUMMARY | 2018-09-15 11:18 | XMS REPORT | Continuity of Care Document ---
:1935 External Reference #:[id number] Author Name Pee San M.D. Address [address] [place] [address] Care Team Providers Name Role Phone Александр Astorga M.D. Primary Care Physician Unavailable Payers Date Identification Numbers Payment Provider Subscriber Policy Number: [id number] Medicare - [employer] Christoph Estrada PayID: [id number] [address] [place] [address] Policy Number: [id number] [place] [facility] Christoph Estrada PayID: [id number] [address] [place] [address] Advance Directives Description No Information Available Problems Active Problems Provider Date Asthma Onset: Gastroesophageal reflux disease Onset: Essential hypertension Onset: Arthritis Onset: Hypercholesterolemia Onset: Seasonal allergy Onset: Optic atrophy Pee San M.D. Onset: 10/28/2015 Presence of intraocular lens Pee San M.D. Onset: 10/28/2015 Tremor Onset: Pneumonia Onset: Large prostate Onset: Other optic atrophy, right eye Pee San M.D. Onset: 03/06/2016 Other optic atrophy, bilateral Pee San M.D. Onset: 10/29/2016 Myopia Sherin Ruiz O.D. Onset: 01/15/2017 Regular astigmatism Sherin Ruiz O.D. Onset: 01/15/2017 Presbyopia Sherin Ruiz O.D. Onset: 01/15/2017 Hypertropia Pee San M.D. Onset: 09/09/2018 Family History Date Family Member(s) Observation Comments Father No Current Problems Mother No Current Problems Social History Type Date Description Comments Sex Unknown Marital Status Legal Status: Occupation [employer] Work Status Retired ETOH Use Denies alcohol use Recreational Drug Use Denies Drug Use Tobacco Use Start: Unknown End: Unknown Patient is a former smoker Smoking Status Reviewed: 09/09/18 Patient is a former smoker Allergies, Adverse Reactions, Alerts Description No Known Drug Allergies Medications Active Medications SIG Qnty Indications Ordering Provider Date Artificial Tears as needed Pee San, 03/05/2016 0.1-0.3% M.D. Solution Saw Harvey Unknown 80mg Capsules Trelegy Ellipta Unknown 100-62.5-25mcg/Inh Aerosol Ranitidine HCL Unknown 150mg Capsules Prednisone Unknown 2.5mg Tablets Nystatin Swish And Swallow Unknown 212561Wyfg/ML 5ML By Mouth Suspension Three Times A Day Lamotrigine Take 2 Tablets By Unknown 25mg Tablets Mouth Twice Daily Donepezil HCL Rizwan [place] 10mg M.D. Tablets Rosuvastatin Calcium Unknown 20mg Tablets Ipratropium Unknown [place]/Albuterol Sulfate 0.5-2.5(3)mg/3ML Solution Aspirin Unknown 81mg Tablets DR Mustapha Astorga [place] 0.4mg Tablets M.D. Sub Furosemide Rizwan [place] 40mg Tablets M.D. Fosinopril Sodium [facility] 10mg M.D. Tablets Carvedilol Александр Astorga [place] 6.25mg Tablets History Medications Pantoprazole Sodium Take 1 Tablet By Unknown - 40mg Mouth Twice Daily 09/08/2018 Tablets Sertraline HCL Take 1 2 Tablet By [facility] - 50mg Tablets Mouth Once Daily 09/08/2018 For One Week T Metoclopramide HCL Take 1 Tablet By Unknown - 5mg Tablets Mouth Twice Daily 09/08/2018 Prednisone Take 2 Tablets Unknown - 20mg Tablets Daily For 4 Days 09/08/2018 1 Tablet Daily For 4 Days 1 2 Tablet Guaifenesin-Codeine Take 5ML By Mouth Unknown - Every 4 Hours as 09/08/2018 100-10mg/5ML Solution Needed. Max 30ML Day Fluconazole Take 1 Tablet By Unknown - 200mg Tablets Mouth Once 09/08/2018 Repeat If No Better Propranolol HCL Take 1 Tablet By Unknown - 10mg Tablets Mouth Three Times 09/08/2018 A Day. [facility] 62.5-25mcg/Inh M.DRajan 09/08/2018 Aerosol Fluocinolone Acetonide Unknown - 0.01% 09/08/2018 Cream Primidone Unknown - 50mg Tablets 09/08/2018 Azithromycin [facility] - 250mg Tablets M.D. 09/08/2018 Tamsulosin HCL [facility] - 0.4mg Capsules M.D. 09/08/2018 Ventolin HFA [facility] - 108(90Base) M.DRajan 09/08/2018 mcg/Act Aerosol Crestor Unknown - 20mg Tablets 01/05/2016 Divalproex Sodium Unknown - 250mg Tablets 02/04/2016 [facility]epraz[facility] C[facility] DR Baptiste 09/08/2018 Immunizations Description No Information Available Vital Signs Description No Information Available Results Description No Information Available Procedures Date Code Description Status 01/15/2017 98753 Determination Of Refractive State Completed 10/30/2016 37182 Visual Field Exam Extended Completed 10/29/2016 72903 Est Patient Comprehensive Exam Completed 03/07/2016 17933 Visual Field Exam Extended Completed 03/06/2016 85756 Est Patient Intermediate Exam Completed 10/28/2015 90129 Determination Of Refractive State Completed 10/28/2015 79690 Est Patient Comprehensive Exam Completed 01/11/2014 17808 Determination Of Refractive State Completed 01/11/2014 90358 Est Patient Comprehensive Exam Completed 01/10/2012 19619 Visual Field Exam Extended Completed 01/10/2012 25018 Est Patient Intermediate Exam Completed 08/20/2011 80801 Visual Field Exam Extended Completed 08/20/2011 47949 Est Patient Comprehensive Exam Completed 10/06/2010 63030 Excision Lesion Eyelid Completed 08/29/2010 03937 Visual Field Exam Extended Completed 08/29/2010 79411 Est Patient Intermediate Exam Completed 03/08/2010 19179 Determination Of Refractive State Completed 02/17/2010 84876 Est Patient Intermediate Exam Completed 09/08/2009 68145 Scanning Laser W/Interp And Report Completed 09/08/2009 47024 Est Patient Intermediate Exam Completed 08/11/2009 07440 Visual Field Exam Extended Completed 08/05/2009 11778 Est Patient Comprehensive Exam Completed 09/24/2008 90497 Visual Field Exam Extended Completed 09/22/2008 11596 Extracapsular Cataract Extraction W/Intraocular Lens Completed 09/16/2008 05095 Ophthalmic Biometry Completed 09/15/2008 24223 Extracapsular Cataract Extraction W/Intraocular Lens Completed 09/09/2008 45412 Fundus Photography With Interpretation And Report Completed 09/09/2008 69477 Ophthalmic Biometry Completed 09/09/2008 75619 Visual Field Exam Extended Completed 08/17/2008 38849 Scanning Laser W/Interp And Report Completed 08/17/2008 32206 New Patient Comprehensive Exam Completed 08/17/2008 01032 Pachymetry Completed Encounters Type Date Location Provider Dx Diagnosis Office Visit 09/09/2008 Pee San, Pee San, 366.16 Senile Nuclear 2:00p , shanna Baptiste Sclerosis / Cataract 365.01 Low Risk Open Angle Glaucoma/ Suspect Plan of Treatment 09/09/2018 - Pee San M.D.H47.293 Other optic atrophy, bilateralComments :Smoking can increase the risk of developing or worsening any eye related disease, as well as affect your overall health. If you are a smoker, we strongly recommend that you quit.If you are not a smoker, we strongly recommend that you do not start. You have optic atrophy in both of your eyes. This means that the optic nerve is damaged and can cause vision difficulty.Follow up:6 Month Follow Up Diagnostic Refraction CHECK PRISM AND APD At your next visit, we are not planningto dilate your eyes. However, if you have any changes in your vision or new symptoms, there are certain situations that require us to dilate your eyes. If Dr. San requests any additional testing, that may require extra time. If you have any questions before your next appointment, please call our office at .Z96.1 Presence of intraocular lensComments:The artificial lens implants in both eyes appear to be stable at this time.H50.22 Vertical strabismus, left eyeComments:If you have an increase in double vision, please call our office. We could also refer you to a surgeon.
[2018-09-15] MEDS ORDERED: Albuterol/Ipratropium NEB.SOL* Albuterol 2.5 MG/Ipratropium 0.5 MG 3 ML INH ONE (11:45)
--- NOTE | 2018-09-15 12:10 | UC ---
Respiratory Complaint HPI - HPI Summary HPI Summary: 82 -year-old male who has a history of COPD and congestive heart failure. Over the past week he has had increasing shortness of breath and a moist cough. He is a nonsmoker. He was hospitalized earlier in the year for congestive heart failure. Denies any fever or chills. - History of Current Complaint Chief Complaint: UCGeneralIllness Stated Complaint: CHEST CONGESTION Time Seen by Provider: 09/15/18 12:09 Hx Obtained From: Patient, Family/[employer] P[employer] Tester Onset/Duration: Gradual Onset Severity Initially: Mild Severity Currently: Mild Pain Intensity: 0 Character: Cough: Nonproductive - Moist cough. Aggravating Factors: Exertion Alleviating Factors: Bronchodilator - Patient used his nebulizer once today which she did not feel helped his breathing. Associated Signs And Symptoms: Positive: Wheezing, URI - Allergies/Home Medications Allergies/Adverse Reactions: Allergies Allergy/AdvReac Type Severity Reaction Status Date / Time levofloxacin [From Levaquin] Allergy Intermediate hallucinations, Verified 09/15 11:26 worsening breathing azithromycin Allergy Pain Verified 09/15/18 11:26 Home Medications: Home Medications Albuterol/Ipratropium NEB.NIGHAT* [Duoneb (Albuterol 2.5 MG/Ipratropium 0.5 MG)] 1 neb INH BID PRN 09/15/18 [History Confirmed 09/15/18] Furosemide TAB* [Lasix TAB*] 20 mg PO .EVERYOTHERDAY 09/15/18 [History Confirmed 09/15/18] PMH/Surg Hx/FS Hx/Imm Hx Previously Healthy: Yes Cardiovascular History: Pacemaker/ICD, Congestive Heart Failure Respiratory History: COPD - Surgical History Surgical History: Yes Surgery Procedure, Year, and Place: Pacemaker, Defribillator. right shoulder replacement. hernia x2 - Family History Known Family History: Positive: Cardiac Disease, Other - Stroke - Social History Occupation: Retired Lives: With Family Alcohol Use: None Substance Use Type: None Smoking Status (MU): Former Smoker When Did the Patient Quit Smoking/Using Tobacco: 1997 Household Exposure Type: Cigarettes - Immunization History Most Recent Influenza Vaccination: 2016 Most Recent Pneumonia Vaccination: 2014 Review of Systems All Other Systems Reviewed And Are Negative: Yes Respiratory: Positive: Shortness Of Breath, Cough - Moist cough Cardiovascular: Positive: Negative Is Patient Immunocompromised?: No Physical Exam Triage Information Reviewed: Yes Appearance: Well-Appearing, No Pain Distress, Well-Nourished Vital Signs: Initial Vital Signs Temp 98.8 F 09/15/18 11:18 Pulse 83 09/15/18 11:18 Resp 26 09/15/18 11:18 BP 120/74 09/15/18 11:18 Pulse Ox 96 09/15/18 11:18 Vital Signs Reviewed: Yes Eyes: Positive: Conjunctiva Clear ENT: Positive: Hearing grossly normal, Pharynx normal, TMs normal, Uvula midline Neck: Positive: Supple, Nontender, No Lymphadenopathy Respiratory: Positive: No respiratory distress, No accessory muscle use, Rhonchi , Wheezing - Mild wheezing throughout mostly with forced expiration. Cardiovascular: Positive: RRR, No Murmur, Pulses Normal, Brisk Capillary Refill Abdominal Exam: Normal Abdomen Description: Positive: Nontender, No Organomegaly, Soft Bowel Sounds: Positive: Present Musculoskeletal: Positive: Strength Intact, ROM Intact Neurological: Positive: Alert, Muscle Tone Normal Psychological Exam: Normal Respiratory Course/Dx - Course Course Of Treatment: CXR: FINDINGS: CARDIOMEDIASTINAL SILHOUETTE: The cardiomediastinal silhouette is normal. ALAYNA: The alayna are normal. PLEURA: The costophrenic angles are sharp. No pleural abnormalities are noted. LUNG PARENCHYMA: There is hyperinflation with flattening of the diaphragm and expansion of the AP diameter of the chest. ABDOMEN: The upper abdomen is clear. There is no subphrenic gas. BONES AND SOFT TISSUES: The patient is status post internal fixation of the right clavicle OTHER: A left-sided AICD is noted. IMPRESSION: COPD. The patient was given a DuoNeb treatment here which, he states, improved his feeling of increased aeration. He is to stop his prednisone 2.5 mg at home and I'm putting him on a tapering dose starting at 60 mg daily for 3 days, 40 mg daily for 3 days, 20 mg daily for 3 days. He can use his albuterol nebulizer at home every 4 hours as needed for wheezing or shortness of breath. He has 2 appointments with his specialist and primary care provider next week and I advised him to keep those appointments. As the week progresses if he has any worsening symptoms, fever or increased shortness of breath he is to go to the emergency room. - Differential Dx/Diagnosis Provider Diagnosis: Bronchitis Discharge - Sign-Out/Discharge Documenting (check all that apply): Patient Departure All imaging exams completed and their final reports reviewed: Yes - Discharge Plan Condition: Fair Disposition: HOME Prescriptions: predniSONE [Prednisone 20 MG TAB] 20 mg PO DAILY 9 Days #18 tablet Patient Education Materials: Chronic Bronchitis (DC) Referrals: Rizwan TATE,Александр Rahman [Primary Care Provider] - Additional Instructions: Take your prednisone daily as directed. Stop your lower dose of prednisone that you take at home. Use your albuterol nebulizer every 4 hours as needed. Keep your appointment with your primary care physician next week and recheck sooner if you develop fever, difficulty breathing or go to the emergency room for any worsening symptoms. - Billing Disposition and Condition Condition: FAIR Disposition: Home - Attestation Statements Provider Attestation: I was available for consult. This patient was seen by the SERGIO. The patient was not presented to, seen by, or examined by me. -[place]
[2018-09-15 13:06] VITALS: BP 110/63
== END 2018-09-15 13:25 | disposition home or self-care (01) ==
LOC: UCEAST 11:12
DX: J44.9 Chronic obstructive pulmonary disease, unspecified (principal); R05 Cough; I45.2 Bifascicular block; I50.9 Heart failure, unspecified; Z95.810 Presence of automatic (implantable) cardiac defibrillator; Z96.611 Presence of right artificial shoulder joint; Z88.1 Allergy status to other antibiotic agents; Z87.891 Personal history of nicotine dependence
CPT/HCPCS: 71046; 93005; 99212; A9270-GY; G0463

== ENCOUNTER 2018-10-03 19:01 | Inpatient (IN) | payer MEDICARE, BC ==
--- OUTSIDE RECORDS SUMMARY | 2018-10-03 19:32 | XMS REPORT | Continuity of Care Document ---
:1935 External Reference #:[id number] Author Name Chica Brooke Care Team Providers Name Role Phone Александр Astorga MD Primary Care Physician Unavailable Payers Date Identification Numbers Payment Provider Subscriber Policy Number: [id number] Medicare Christoph Estrada PayID: [id number] [address] [place] [address] Policy Number: [id number] [facility] Christoph Estrada PayID: [id number] [address] [place] [address] Family History Date Family Member(s) Observation Comments [...] and about 1/2 ppd Smoking Status Reviewed: 09/18/18 Former Cigarette Smoker Smoked for 50 years and about 1/2 ppd ETOH Use Denies alcohol use Tobacco Use Start: Unknown End: Patient is a former Unknown smoker Recreational Drug Use Denies Drug Use Exercise Type/Frequency Exercises regularly Allergies, Adverse Reactions, Alerts Description No Known Drug Allergies Medications Active Medications SIG Qnty Indications Ordering Date Provider Doxycycline 1 tablet by mouth 14caps J44.1 Elsa Perry, 09/18/2018 Monohydrate every 12 hours 100mg Capsules Prednisone 1 tab daily after 7units J44.1 Elsa Perry, 09/18/2018 10mg (21) completing current MD TBPK course Prednisone 2 by mouth daily 90tabs J44.9 Elsa Perry, 01/29/2018 2.5mg for 1 month and 1 MD Tablets daily thereafter Prednisone 3 tabs for 3 Unknown 20mg Tablets days,2 tabs for 3 days,1 tab for 3 day Trelegy Ellipta 1 puff daily Unknown 100-62.5-25mcg/Inh Aerosol Tumeric 1 cap qd Unknown 500mg Cap Flaxseed Oil 2 by mouth bid Unknown 1200mg Capsules Ipratropium Inhale The Unknown [place]/Albuterol Contents Of One Sulfate Vial Via Nebulizer [...] Medications Spiriva Respimat 2 puffs every day 4units Elsa Perry, 11/06/2017 - 01/28/2018 2.5mcg/Act Aerosol Symbicort 2 puff twice a day 30.6gm Elsa Perry 11/06/2017 - 07/07/2018 80-4.5mcg/Act Aerosol Vortex Valved use as instructed 1uncodi Perry 11/06/2017 - Holding Chamber 01/28/2018 Device Prednisone 1 tab daily 120tabs J44.1 Elsa Perry, 09/25/2017 - 5mg 01/29/2018 Tablets Doxycycline Hyclate one tablet twice 14caps J44.1 Elsa Perry 2017 - daily for 7 days. 10/28/2017 100mg Capsules Omeprazole Take One Capsule Unknown - 40mg By Mouth Twice A 08/24/[address] Day Tamsulosin HCL qd Александр Astorga, - 0.4mg 08/24/2018 Capsules Flovent Diskus Inhale One puff By Unknown - Mouth Twice A Day 01/29/2018 100mcg/Blist Aerosol Anoro Ellipta Inhale One puff By Unknown - Mouth Every Day 11/06/2017 62.5-25mcg/Inh Aerosol Primidone 1qam and 2 qpm Unknown - 50mg 08/24/2018 Tablets Vital Signs Date Vital Result Comment 09/18/2018 10:26am Height 74 inches 6'2" Weight 221.00 lb Heart Rate 88 /min BP Systolic Sitting 120 mmHg Lue large cuff BP Diastolic Sitting 80 mmHg Lue large cuff Respiratory Rate 32 /min O2 % BldC Oximetry 94 % BMI (Body Mass Index) 28.4 kg/m2 08/25/2018 3:02pm Height 74 inches 6'2" Weight [...] % BMI (Body Mass Index) 29.7 kg/m2 Procedures Date Code Description Status 10/16/2017 57310 Diffusing Capacity Completed 10/16/2017 12964 Plethysmography Determination Lung Volumes & Per Airway Completed Resist 10/16/2017 47023 Pulmonary Stress Testing, Inc Measurement Heart Rate, Completed Oximetry Encounters Type Date Location Provider Dx Diagnosis Office Visit 08/25/2018 [facility] Elsa Perry, R06.02 Shortness of 3:30p [facility] sharri Estrella J44.9 Chronic obstructive pulmonary disease, unspecified J45.909 Unspecified asthma, uncomplicated Office Visit 01/29/2018 11:30a Pul[facility]ology And Elsa J44.9 Chronic [facility] rachel Perry Supervisor [place] pulmonary disease, unspecified J45.909 Unspecified asthma, uncomplicated E66.09 Other obesity due to excess calories Office Visit 10/29/2017 10:15a Pul[facility] And Elsa J44.9 Chronic [facility] rachel Perry Cma pulmonary disease, unspecified J45.909 Unspecified asthma, uncomplicated E66.09 Other obesity due to excess calories Office Visit 2017 [facility] Lacy Giron J18.1 Lobar pneumonia, 11:04a Assshanna ching NP unspecified Hospitalists organism J41.1 Mucopurulent chronic bronchitis J44.9 Chronic obstructive pulmonary disease, unspecified Z86.79 Personal history of other diseases of the circulatory system Office Visit 10/01/2017 [facility] Lacy Giron J18.1 Lobar pneumonia, 11:03a Assshanna ching NP unspecified Hospitalists organism J41.1 Mucopurulent chronic bronchitis J44.9 Chronic obstructive pulmonary disease, unspecified Z86.79 Personal history of other diseases of the circulatory system Office Visit 09/30/2017 [facility] Ana Garnett J18.1 Lobar pneumonia, 11:02a shanna Banuelos M.D. unspecified Hospitalists organism J41.1 Mucopurulent chronic bronchitis Office Visit 09/25/2017 8:30a Pulmonology And Elsa J44.1 Chronic [facility] rachel Perry Supervisor [place] pulmonary disease w (acute) exacerbation Z87.891 Personal history of nicotine dependence K21.9 Gastro-esophageal reflux disease without esophagitis E66.09 Other obesity due to excess calories Z68.29 Body mass index (BMI) 29.0-29.9, adult Office Visit 03/09/2017 [facility] Ana Garnett J18.9 Pneumonia, 6:42a Assshanna ching M.D. unspecified Hospitalists organism I25.10 Athscl heart disease of [place] coronary artery w/o ang pctrs R68.89 Other general symptoms and signs J44.9 Chronic obstructive pulmonary disease, unspecified Office Visit 03/08/2017 6:41a [facility] Kenny J18.9 Pneumonia, Assoc,pc MD Tra unspecified Hospitalists organism I25.10 Athscl heart disease of [place] coronary artery w/o ang pctrs J44.9 Chronic obstructive pulmonary disease, unspecified R68.89 Other general symptoms and signs Plan of Treatment Future Appointment(s):10/03/2018 7:15 am - Elsa Perry MD at [facility]09/18/2018 - Elsa Perry MDJ44.1 Chronic obstructive pulmonary disease with (acute) exacerbatNew Medication:Doxycycline Monohydrate 100 mg - 1 tablet by mouth every 12 hoursPrednisone 10 mg (21) - 1 tab daily after completing current courseFollow up:2 [id number] Unspecified asthma with (acute) exacerbation
[2018-10-03 20:39] LABS: ABS Basophils 0.1 10^3/ul (0-0.2); ABS Eosinophils 0.2 10^3/ul (0-0.6); ABS Lymphocytes 0.9 10^3/ul (1.0-4.8); ABS Monocytes 0.8 10^3/ul (0-0.8); Eosinophil % 2.7 %; Hematocrit 47 % (42-52); Hemoglobin 15.9 g/dL (14.0-18.0); Lymphocyte % 11.7 %; Mean Corpuscular HGB Conc 34 g/dL (31-36); Mean Corpuscular Hemoglobin 33 pg (27-31); Mean Corpuscular Volume 95 fL (80-94); Mean Platelet Volume 6.9 fL (7.4-10.4); Platelet Count 110 10^3/uL (150-450); Red Blood Count 4.89 10^6 /uL (4.18-5.48); Red Cell Distribution Width 13 % (10.5-15); White Blood Count 7.9 10^3/uL (3.5-10.8)
[2018-10-03 20:49] LABS: INR 1.08 (0.82-1.09)
[2018-10-03 20:58] LABS: ALT 18 U/L (7-52); AST 17 U/L (13-39); Albumin 3.9 g/dL (3.2-5.2); Albumin/Globulin Ratio 1.5 (1-3); Alkaline Phosphatase 61 U/L (34-104); Anion Gap 8 mmol/L (2-11); BUN/Creatinine Ratio 9.6 (8-20); Blood Urea Nitrogen 13 mg/dL (6-24); C Reactive Protein 49.56 mg/L (<8.01); CO2 Carbon Dioxide 26 mmol/L (22-32); Calcium 9.5 mg/dL (8.6-10.3); Chloride 103 mmol/L (101-111); Creatine Kinase 73 U/L (10-223); EGFR African American 61.4 (>60); EGFR Non-African American 50.7 (>60); Globulin 2.6 g/dL (2-4); Glucose 123 mg/dL (70-100); Sodium 137 mmol/L (135-145); Total Protein 6.5 g/dL (6.4-8.9)
[2018-10-03 21:02] LABS: CKMB ng/mL 3.9 ng/mL (0.6-6.3)
[2018-10-03 21:06] LABS: Troponin I 0.07 ng/mL (<0.04)
[2018-10-03] MEDS ORDERED: LORazepam INJ* 2 MG/ML 1 ML VIAL IM ONE (22:11)
[2018-10-03] MEDS ORDERED: Lorazepam PYXIS KEY PRN (22:11)
[2018-10-03] MEDS ORDERED: methylPREDNISolone 125 MG* 2 ML VIAL IV ONE (22:52)
[2018-10-03] MEDS ORDERED: Albuterol/Ipratropium NEB.SOL* Albuterol 2.5 MG/Ipratropium 0.5 MG 3 ML INH ONE (22:52)
--- NOTE | 2018-10-03 23:00 | ED ---
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 He additionally c/o intermittent CP from coughing (not currently present) and upper back pain between the scapulae also possibly secondary to coughing. The pain is currently rated 9/10 in severity. He states that he's recently been dealing with pulmonary and respiratory problems, but they have not been resolved despite being on abx and Prednisone. He also recently saw a pre k lead teacher at [place], where he had an echocardiogram done, but the results have not been released to him yet. Hx of COPD. 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 Current Severity: Moderate Dyspnea At: Rest Aggrevating Factors: Nothing Alleviating Factors: Nothing Associated Signs & Symptoms: Cough (Nonproductive), Chest Pain w/Cough - Allergy/Home Medications Allergies/Adverse Reactions: Allergies Allergy/AdvReac Type Severity Reaction Status Date / Time levofloxacin [From Levaquin] Allergy Intermediate hallucinations, Verified 10/03 19:09 worsening breathing azithromycin Allergy Pain Verified 10/03/18 19:09 Home Medications: Home Medications Formoterol 20 MCG/2ML NEB (NF) [Perforomist NEB.SOLN*(NF)] 20 mcg INH BID [History Confirmed 10/03/18] Tiotropium Brom/Olodaterol(NF) [Stiolto Respimat Inh [place] (60 puff)(NF)] 2 puff INH BID 10/03/18 [History Confirmed 10/03/18] PMH/Surg Hx/FS Hx/Imm Hx Endocrine/Hematology History: Reports: Hx Diabetes - borderline Denies: Hx Thyroid Disease Cardiovascular History: Reports: Hx Coronary Artery Disease, Hx Myocardial Infarction - 1997, Hx Pacemaker/ICD, Other Cardiovascular Problems/Disorders - Heart disease; Denies: Hx Hypertension Respiratory History: Reports: Hx Chronic Obstructive Pulmonary Disease (COPD) Denies: Hx Asthma GI History: Reports: Hx Gastroesophageal Reflux Disease, Other GI Disorders - Stomach problems Denies: Hx Ulcer History: Denies: Hx Renal Disease Musculoskeletal History: Reports: Hx Arthritis Sensory History: Denies: Hx Contacts or Glasses, Hx Hearing Aid Opthamlomology History: Denies: Hx Contacts or Glasses - Surgical History Surgery Procedure, Year, and Place: Pacemaker, Defribillator. right shoulder replacement. hernia x2 Infectious Disease History: No Infectious Disease History: Denies: Hx Hepatitis, Hx Human Immunodeficiency Virus (HIV), Traveled Outside the [place] in Last 30 Days - Family History Known Family History: Positive: Cardiac Disease, Other - Stroke - Social History Alcohol Use: None Hx Substance Use: No Substance Use Type: Reports: None Hx Tobacco Use: Yes Smoking Status (MU): Former Smoker Review of Systems Negative: Chest Pain - possibly secondary to coughing Positive: Shortness Of Breath, Cough - nonproductive, Other - wheezing Positive: Other - pain in upper back between scapulae possibly secondary to coughing All Other Systems Reviewed And Are Negative: Yes Physical Exam - Summary Physical Exam Summary: Appearance: Well appearing, no pain distress Skin: warm, dry, reflects adequate perfusion Head/face: normal Eyes: EOMI, SANTO ENT: normal Neck: supple, non-tender Respiratory: bilateral wheeze, breath sounds present Cardiovascular: RRR, pulses symmetrical Abdomen: non-tender, soft Musculoskeletal: normal, strength/ROM intact Neuro: normal, sensory motor intact, A&Ox3 Triage Information Reviewed: Yes Vital Signs On Initial Exam: Initial Vitals Temp Pulse Resp BP Pulse Ox 98.6 F 90 22 122/73 96 10/03/18 19:05 10/03/18 19:05 10/03/18 19:05 10/03/18 19:05 10/03/18 19:05 Vital Signs Reviewed: Yes Diagnostics - Vital Signs Vital Signs Temp Pulse Resp BP Pulse Ox 10/03/18 21:36 98.2 F 85 16 109/65 96 10/03/18 19:05 98.6 F 90 22 122/73 96 - Laboratory Lab Results: Lab Results 10/03/18 10/03/18 10/03/18 Range/Units 20:34 20:34 20:34 WBC 7.9 (3.5-10.8) 10^3/uL RBC 4.89 (4.18-5.48) 10^6 /uL Hgb 15.9 (14.0-18.0) g/dL Hct 47 (42-52) % MCV 95 H (80-94) fL MCH 33 H (27-31) pg MCHC 34 (31-36) g/dL RDW 13 (10.5-15) % Plt Count 110 L (150-450) 10^3/uL MPV 6.9 L (7.4-10.4) fL Neut % (Auto) 75.3 % Lymph % (Auto) 11.7 % Braxton % (Auto) 9.6 % Eos % (Auto) 2.7 % Baso % (Auto) 0.7 % Absolute Neuts (auto) 6.0 (1.5-7.7) 10^3/ul Absolute Lymphs (auto) 0.9 L (1.0-4.8) 10^3/ul Absolute Monos (auto) 0.8 (0-0.8) 10^3/ul Absolute Eos (auto) 0.2 (0-0.6) 10^3/ul Absolute Basos (auto) 0.1 (0-0.2) 10^3/ul Absolute Nucleated RBC 0.0 10^3/ul Nucleated RBC % 0.0 INR (Anticoag Therapy) 1.08 (0.82-1.09) APTT 33.0 (26.0-38.0) seconds Sodium 137 (135-145) mmol/L Potassium 4.0 (3.5-5.0) mmol/L Chloride 103 (101-111) mmol/L Carbon Dioxide 26 (22-32) mmol/L Anion Gap 8 (2-11) mmol/L BUN 13 (6-24) mg/dL Creatinine 1.35 H (0.67-1.17) mg/dL Est GFR ( Amer) 61.4 (>60) Est GFR (Non-Af Amer) 50.7 (>60) BUN/Creatinine Ratio 9.6 (8-20) Glucose 123 H (70-100) mg/dL Lactic Acid (0.5-2.0) mmol/L Calcium 9.5 (8.6-10.3) mg/dL Total Bilirubin 0.60 (0.2-1.0) mg/dL AST 17 (13-39) U/L ALT 18 (7-52) U/L Alkaline Phosphatase 61 (34-104) U/L Total Creatine Kinase 73 (10-223) U/L CK-MB (CK-2) 3.9 (0.6-6.3) ng/mL Troponin I 0.07 H* (<0.04) ng/mL C-Reactive Protein 49.56 H (<8.01) mg/L B-Natriuretic Peptide (<=100) pg/mL Total Protein 6.5 (6.4-8.9) g/dL Albumin 3.9 (3.2-5.2) g/dL Globulin 2.6 (2-4) g/dL Albumin/Globulin Ratio 1.5 (1-3) 10/03/18 10/03/18 Range/Units 20:34 20:34 WBC (3.5-10.8) 10^3/uL RBC (4.18-5.48) 10^6 /uL Hgb (14.0-18.0) g/dL Hct (42-52) % MCV (80-94) fL MCH (27-31) pg MCHC (31-36) g/dL RDW (10.5-15) % Plt Count (150-450) 10^3/uL MPV (7.4-10.4) fL Neut % (Auto) % Lymph % (Auto) % Braxton % (Auto) % Eos % (Auto) % Baso % (Auto) % Absolute Neuts (auto) (1.5-7.7) 10^3/ul Absolute Lymphs (auto) (1.0-4.8) 10^3/ul Absolute Monos (auto) (0-0.8) 10^3/ul Absolute Eos (auto) (0-0.6) 10^3/ul Absolute Basos (auto) (0-0.2) 10^3/ul Absolute Nucleated RBC 10^3/ul Nucleated RBC % INR (Anticoag Therapy) (0.82-1.09) APTT (26.0-38.0) seconds Sodium (135-145) mmol/L Potassium (3.5-5.0) mmol/L Chloride (101-111) mmol/L Carbon Dioxide (22-32) mmol/L Anion Gap (2-11) mmol/L BUN (6-24) mg/dL Creatinine (0.67-1.17) mg/dL Est GFR ( Amer) (>60) Est GFR (Non-Af Amer) (>60) BUN/Creatinine Ratio (8-20) Glucose (70-100) mg/dL Lactic Acid 1.0 (0.5-2.0) mmol/L Calcium (8.6-10.3) mg/dL Total Bilirubin (0.2-1.0) mg/dL AST (13-39) U/L ALT (7-52) U/L Alkaline Phosphatase (34-104) U/L Total Creatine Kinase (10-223) U/L CK-MB (CK-2) (0.6-6.3) ng/mL Troponin I (<0.04) ng/mL C-Reactive Protein (<8.01) mg/L B-Natriuretic Peptide 179 H (<=100) pg/mL Total Protein (6.4-8.9) g/dL Albumin (3.2-5.2) g/dL Globulin (2-4) g/dL Albumin/Globulin Ratio (1-3) Result Diagrams: 10/03/18 20:34 10/03/18 20:34 Lab Statement: Any lab studies that have been ordered have been reviewed, and results considered in the medical decision making process. - Radiology CXR Radiology Interpretation Completed By: Radiologist Summary of Radiographic Findings: No acute infiltrate. ED physician has reviewed this radiology report. - EKG 2018 Cardiac Rate: NL - 84 BPM EKG Rhythm: Sinus Rhythm EKG Comparison: No Significant Change - Similar to EKG taken on 09/15/2018 Summary of EKG Findings: No ST elevations Re-Evaluation - Re-Evaluation First Eval Re-Evaluation Time: 23:15 Comment: I spoke with the patient concerning results and admission to the hospital. 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 He additionally c/o intermittent CP (not currently present) and upper back pain between the scapulae both possibly secondary to coughing. Upon physical exam, the patient exhibits bilateral wheeze. In the ED course, the patient was administered Ativan, Duoneb, and Solu- Medrol. Blood work obtained. EKG reveals NSR at 84 BPM. CXR impression reveals no acute infiltrate. He is diagnosed with COPD exacerbation and chest pain with rule out of WA. At 2300, I discussed the patients case with Dr. Shipley, hospitalist, and she accepts the patient for admission at this time. He agrees with the plan and understands the need for admission at this time. - Diagnoses Differential Diagnosis/HQI/PQRI: Positive: CHF, COPD Exacerbation, Other - angina/acs Provider Diagnoses: COPD exacerbation, Chest pain, rule out acute myocardial infarction - Physician Notifications Discussed Care of Patient With: Lexus Shipley - hospitalist Time Discussed With Above Provider: 23:00 Instructed by Provider To: Other - I discussed the patient's case with Dr. Shipley, and she accepts the patient for admission at this time. Discharge - Sign-Out/Discharge Documenting (check all that apply): Patient Departure - Patient is accepted for admission by Dr. Shipley. Patient Received Moderate/Deep Sedation with Procedure: No - Discharge Plan Condition: Stable Disposition: ADMITTED TO [facility] - Billing Disposition and Condition Condition: STABLE Disposition: Admitted to [facility] - Attestation Statements Document Initiated by Shantellibe: Yes Documenting Scribe: Abeba Chung Provider For Whom Kavin is Documenting (Include Credential): Dr. Merlin Nur MD Scribe Attestation: IAbeba scribed for Dr. Merlin Nur MD on 10/04/18 at 0256. Scribe Documentation Reviewed: Yes Provider Attestation: The documentation as recorded by the Abeba mitchell accurately reflects the service I personally performed and the decisions made by me, Dr. Merlin Nur MD Status of Scribe Document: Viewed
[2018-10-03] MEDS ORDERED: Albuterol/Ipratropium NEB.SOL* Albuterol 2.5 MG/Ipratropium 0.5 MG 3 ML INH PRN (23:41)
[2018-10-04 00:45] LABS: Troponin I 0.06 ng/mL (<0.04)
[2018-10-04] MEDS: DOXYcycline CAP(*) 100 MG PO SCH ×3 (00:51→21:32)
--- NOTE | 2018-10-04 02:14 | HP ---
CC: Dr. Александр Astorga * HISTORY AND PHYSICAL: DATE OF ADMISSION: 10/03/18 PRIMARY CARE PROVIDER: Dr. Александр Astorga. CHIEF COMPLAINT: Shortness of breath and back pain. HISTORY OF PRESENT ILLNESS: Mr. Estrada is an 83-year-old male with history of COPD, coronary artery disease, GERD with history of esophageal strictures and Arellano esophagus, chronic kidney disease, and BPH who presented to the emergency room with complaints of shortness of breath and pain between his shoulder blades. The patient states that he has not been sleeping well over the last several days. He states that he has frequent cough; however, it has worsened over the last 1 week. He is not bringing up any sputum. He thinks he has been having chills at night. No fevers. He has been dealing with thrush in his mouth. He states that food has no appetite. He has had significant decrease in his appetite. He also notes that he has pain between his shoulder blades that has been going on over the last few days. His notes that he has been coughing significantly over the last several days. The patient states the pain has been constant. He is frustrated that he is not able to do the things that he used to be able to do. He also notes that when he coughs, the pain in his back worsens. He also complains of pain in the right sabianism area with cough. In general, the patient is a poor historian and this is the information that I am able to obtain from him. PAST MEDICAL HISTORY: 1. Coronary artery disease. 2. GERD. 3. COPD. 4. CKD. 5. BPH. 6. Esophageal stricture. 7. Arellano esophagus. 8. Mild cognitive impairment. PAST SURGICAL HISTORY: 1. Cataract extraction. 2. Clavicle repair. 3. Hernia repair. 4. ICD insertion. MEDICATIONS: 1. Perforomist 20 mcg inhaled twice daily. 2. DuoNeb 1 neb inhaled q.4 hours p.r.n. for shortness of breath. 3. Stiolto Respimat 2 puffs inhaled twice daily. 4. Nitroglycerin 0.4 mg SL q.5 minutes p.r.n. for chest pain. 5. Saw palmetto 450 mg p.o. b.i.d. 6. Lasix 40 mg p.o. daily p.r.n. for lower extremity edema. 7. Lamictal 50 mg p.o. twice daily. 8. Crestor 20 mg p.o. daily. 9. Ranitidine 150 mg p.o. b.i.d. 10. Coreg 6.25 mg p.o. b.i.d. 11. Aspirin 81 mg p.o. daily. 12. Donepezil 10 mg p.o. daily. ALLERGIES: AZITHROMYCIN and LEVAQUIN. FAMILY HISTORY: Mom had history of hypertension and diabetes. Dad had history of cancer. SOCIAL HISTORY: The patient smoked for approximately 48 years; he quit in 1997. He denies any alcohol use. He worked at [employer]. He is . He has 5 children. His is his healthcare proxy. REVIEW OF SYSTEMS: A complete 11-system review of systems is obtained. Pertinent positives and negatives are as per HPI. In addition, the patient does complain of constipation, increased frequency of urination, and intermittent dysphagia and choking on food, which improves after esophageal dilation. He also admits to depression. PHYSICAL EXAMINATION GENERAL: The patient is a well-developed elderly male, seen sitting up on the stretcher, drifting off to sleep, but in no acute distress. VITAL SIGNS: Blood pressure is 109/65, pulse 85, respirations 16, temperature 98.2, O2 saturation 96% on room air. HEENT: Pupils are pinpoint. There is evidence of cataract extraction. Extraocular muscles are intact. Oropharynx is clear. Oral mucosa is somewhat dry. The patient wears upper and lower dentures. There is scant amount of thrush on the patient's tongue. There is no submandibular, cervical or supraclavicular adenopathy. Thyroid is not enlarged. No thyroid nodules noted. PULMONARY: Lungs are clear to auscultation. In the upper lobes, breath sounds are diminished and there are crackles in the bilateral lower lobes. CARDIAC: Normal S1, S2. Regular rate and rhythm. I do not appreciate any murmurs. ABDOMEN: Bowel sounds are present. Abdomen is soft, nontender, and nondistended. MUSCULOSKELETAL: There is no cyanosis or clubbing of the digits. There is full active range of motion of all 4 extremities. NEUROLOGIC: Cranial nerves II through XII are grossly intact. Sensation is intact to light touch throughout. Strength is 5/5 and symmetric to both upper and lower extremities bilaterally. SKIN: Warm and dry. There are no rashes. PSYCHIATRIC: The patient is drowsy (he received 2 mg of Ativan in the emergency room). He is generally a poor historian. DIAGNOSTIC STUDIES/LABORATORY DATA: Labs: WBC 7.9, hemoglobin 15.9, hematocrit 47, platelets 110. INR is 1.08. Sodium 137, potassium 4.0, chloride 103, CO2 of 26, BUN 13, creatinine 1.35, glucose 123, lactic acid 1.0, calcium 9.5. Bilirubin 0.6, AST 17, ALT 18, alkaline phosphatase 61. CPK 73, CK-MB 3.9, troponin is 0.07. CRP is 49.56. BNP is 179. Albumin is 3.9. EKG reveals normal sinus rhythm with right bundle-branch block. Chest x-ray to my interpretation reveals hyperinflation, though the lungs are grossly clear. ASSESSMENT AND PLAN: Mr. Estrada is an 83-year-old male with a history of chronic obstructive pulmonary disease, coronary artery disease, and stage 3 chronic kidney disease who presents to the emergency room with complaints of shortness of breath and back pain. 1. Shortness of breath. I suspect this represents a chronic obstructive pulmonary disease exacerbation. The patient has been having dwindling health status and worsening respiratory status over the last several months. He has had recurrent issues with chest congestion/bronchitis and shortness of breath. The patient was placed on cwelz-zjyvj-cej azithromycin by Dr. Perry earlier this month. The patient does, however, have a reported allergy to azithromycin. He does not have an elevated white blood cell count, though his CRP is somewhat up. The patient will be started on standing nebulizer treatments every 4 hours in addition to p.r.n. nebs. He will also have Solu- Medrol 40 mg IV q.12 hours. The patient received Ativan in the emergency room due to thoughts that anxiety was driving some of his shortness of breath. At this point, the patient is becoming quite sedate. We will need to monitor his respiratory status closely. Sputum culture will be ordered. I will start the patient on Mucinex to see if that helps bring up any of his mucus. 2. Back pain. The patient describes having pain between his shoulder blades. While this is concerning for potential angina, the fact that the pain worsens with cough makes me believe that this is likely musculoskeletal in nature. The patient's troponin is mildly elevated at 0.07. This is in the range of where he typically runs. I will get one more followup troponin to ensure its stability. 3. Coronary artery disease. The patient will be maintained on his usual doses of aspirin, Coreg, and Crestor or other substitute statin. 4. Gastroesophageal reflux disease/Arellano esophagus. Continue H2 marily. 5. Stage 3 chronic kidney disease. The patient's creatinine is up slightly today compared to his baseline; however, he has been using his Lasix recently. He appears relatively euvolemic today and therefore, I will hold off on administering Lasix at this point. 6. Mild cognitive impairment. Continue donepezil. 7. DVT prophylaxis. According to the Adult Thrombosis Prophylaxis Risk Factor Assessment Guide, the patient has a total risk factor score of 6, making him the highest risk. Heparin 5000 units subcutaneous q.8 hours will be utilized as DVT prophylaxis. 8. Code status is DNR, though the patient would accept intubation if necessary. TIME SPENT: Sixty-five minutes were spent admitting this patient. [id number]/[facility] #: [id number] BANG
[2018-10-04] MEDS ORDERED: Albuterol 2.5 MG/3 ML NEB.SOL* (0.083%) INH SCH (03:00)
[2018-10-04 04:09] LABS: Urine Appearance Clear; Urine Bacteria Absent (Absent); Urine Bilirubin Negative (Negative); Urine Blood 1+ (Negative); Urine Color Yellow; Urine Glucose Negative (Negative); Urine Ketones Negative (Negative); Urine Nitrite Negative (Negative); Urine Protein Negative (Negative); Urine Red Blood Cell Trace(0-2/hpf) (Absent); Urine Specific Gravity 1.004 (1.010-1.030); Urine Urobilinogen Negative (Negative); Urine White Blood Cell Trace(0-5/hpf) (Absent)
[2018-10-04] MEDS: Heparin VIAL(*) 5000 UNITS/ML VIAL (FIVE THOUSAND) SUBCUT SCH ×3 (05:38→21:32)
[2018-10-04] MEDS: FORMOTEROL INH SCH ×2 (07:54→19:47)
[2018-10-04] MEDS: MDI INH SCH ×2 (08:00→19:27)
[2018-10-04] MEDS: OLODATEROL INH SCH ×2 (08:00→19:27)
[2018-10-04] MEDS: TIOTROPIUM BROM INH SCH ×2 (08:00→19:27)
[2018-10-04] MEDS ORDERED: guaiFENesin ER TAB 600 MG PO SCH (09:00)
[2018-10-04] MEDS: lamoTRIgine TAB(*) 25 MG PO SCH ×2 (09:29→21:32)
[2018-10-04] MEDS: Donepezil TAB* 5 MG PO SCH (09:30)
[2018-10-04] MEDS: Famotidine TAB* 20 MG PO SCH ×2 (09:30→21:32)
[2018-10-04] MEDS: Nystatin SUSPENSION* 100000 UNITS/ML 5 ML UDC PO SCH ×4 (09:30→21:32)
[2018-10-04] MEDS: Atorvastatin* 40 MG TAB PO SCH (09:30)
[2018-10-04] MEDS: Carvedilol TAB* 6.25 MG PO SCH ×2 (09:30→21:32)
[2018-10-04] MEDS: Aspirin 81 mg CHEW TAB* 81 MG TAB.CHEW PO SCH (09:30)
[2018-10-04] MEDS: methylPREDNISolone SOD 40 MG* 1 ML VIAL IV SCH ×2 (11:08→23:25)
[2018-10-04] MEDS ORDERED: Iodixanol* (CONTRAST) 320 MG/ML 100 ML SDV IV ONE (16:12)
--- NOTE | 2018-10-04 16:21 | PN ---
Subjective Date of Service: 10/04/18 Interval History: still sob.no cp this am.But tachycardic. Objective Active Medications: Albuterol/Ipratropium (Duoneb (Albuterol 2.5 Mg/Ipratropium 0.5 Mg)) 1 neb INH Q4H PRN PRN Reason: SOB/WHEEZING Albuterol/Ipratropium (Duoneb (Albuterol 2.5 Mg/Ipratropium 0.5 Mg)) 1 neb INH [id number] AWAKE [facility] Aspirin (Aspirin 81 Mg Chew Tab*) 81 mg PO DAILY [facility] Last Admin: 10/04/18 09:30 Dose: 81 mg Atorvastatin Calcium (Lipitor*) 40 mg PO QAM [facility] Last Admin: 10/04/18 09:30 Dose: 40 mg Carvedilol (Coreg Tab*) 6.25 mg PO BID [facility] Last Admin: 10/04/18 09:30 Dose: 6.25 mg Donepezil HCl (Aricept Tab*) 10 mg PO DAILY [facility] Last Admin: 10/04/18 09:30 Dose: 10 mg Doxycycline Hyclate (Vibramycin Cap(*)) 100 mg PO BID [facility] Last Admin: 10/04/18 09:30 Dose: 100 mg Famotidine (Pepcid Tab*) 20 mg PO BID [facility]; Protocol Last Admin: 10/04/18 09:30 Dose: 20 mg Formoterol Fumarate (Perforomist Neb.Soln*(Nf)) 20 mcg INH RT.BID [facility] Last Admin: 10/04/18 07:54 Dose: 20 mcg Heparin Sodium (Porcine) (Heparin Vial(*)) 5,000 units SUBCUT Q8HR [facility] Last Admin: 10/04/18 12:31 Dose: 5,000 units Sodium Chloride (Ns 0.9% 500 Ml*) 500 mls @ 75 mls/hr IV PER RATE [facility] Lamotrigine (Lamictal Tab(*)) 50 mg PO BID [facility] Last Admin: 10/04/18 09:29 Dose: 50 mg Methylprednisolone Sodium Succinate (Solu-Medrol 40 Mg) 40 mg IV Q12H [facility] Last Admin: 10/04/18 11:08 Dose: 40 mg Nystatin (Nystatin Suspension*) 500,000 units PO QID [facility] Stop: 10/10/18 23:49 Last Admin: 10/04/18 12:31 Dose: 500,000 units Tiotropium [place]/Olodaterol (Stiolto Respimat Inh [place] (60 Puff)(Nf)) 2 puff INH BID [facility] Last Admin: 10/04/18 08:00 Dose: Not Given Vital Signs - 8 hr 10/04/18 10/04/18 08:41 11:44 Temperature 97.5 F 97.2 F Pulse Rate 102 90 Respiratory 20 16 Rate Blood Pressure 104/70 96/61 (mmHg) O2 Sat by Pulse 96 98 Oximetry Oxygen Devices in Use Now: Nasal Cannula Eyes: No Scleral Icterus Neck: NL Appearance and Movements; NL JVP Respiratory: Symmetrical Chest Expansion and Respiratory Effort, - - bilateral wheezes and rhonchi Cardiovascular: - - tachycardic Abdominal: NL Sounds; No Tenderness; No Distention Extremities: - - 1+ Edema bilaterally Neurological: Alert and Oriented x 3 Result Diagrams: 10/03/18 20:34 10/03/18 20:34 Additional Lab and Data: Lab Results 10/03/18 10/03/18 10/03/18 Range/Units 20:34 20:34 20:34 WBC 7.9 (3.5-10.8) 10^3/uL RBC 4.89 (4.18-5.48) 10^6 /uL Hgb 15.9 (14.0-18.0) g/dL Hct 47 (42-52) % MCV 95 H (80-94) fL MCH 33 H (27-31) pg MCHC 34 (31-36) g/dL RDW 13 (10.5-15) % Plt Count 110 L (150-450) 10^3/uL MPV 6.9 L (7.4-10.4) fL Neut % (Auto) 75.3 % Lymph % (Auto) 11.7 % [place] % (Auto) 9.6 % Eos % (Auto) 2.7 % Baso % (Auto) 0.7 % Absolute Neuts (auto) 6.0 (1.5-7.7) 10^3/ul Absolute Lymphs (auto) 0.9 L (1.0-4.8) 10^3/ul Absolute Monos (auto) 0.8 (0-0.8) 10^3/ul Absolute Eos (auto) 0.2 (0-0.6) 10^3/ul Absolute Basos (auto) 0.1 (0-0.2) 10^3/ul Absolute Nucleated RBC 0.0 10^3/ul Nucleated RBC % 0.0 INR (Anticoag Therapy) 1.08 (0.82-1.09) APTT 33.0 (26.0-38.0) seconds Sodium 137 (135-145) mmol/L Potassium 4.0 (3.5-5.0) mmol/L Chloride 103 (101-111) mmol/L Carbon Dioxide 26 (22-32) mmol/L Anion Gap 8 (2-11) mmol/L BUN 13 (6-24) mg/dL Creatinine 1.35 H (0.67-1.17) mg/dL Est GFR ( Amer) 61.4 (>60) Est GFR (Non-Af Amer) 50.7 (>60) BUN/Creatinine Ratio 9.6 (8-20) Glucose 123 H (70-100) mg/dL Lactic Acid (0.5-2.0) mmol/L Calcium 9.5 (8.6-10.3) mg/dL Total Bilirubin 0.60 (0.2-1.0) mg/dL AST 17 (13-39) U/L ALT 18 (7-52) U/L Alkaline Phosphatase 61 (34-104) U/L Total Creatine Kinase 73 (10-223) U/L CK-MB (CK-2) 3.9 (0.6-6.3) ng/mL Troponin I 0.07 H* (<0.04) ng/mL C-Reactive Protein 49.56 H (<8.01) mg/L B-Natriuretic Peptide (<=100) pg/mL Total Protein 6.5 (6.4-8.9) g/dL Albumin 3.9 (3.2-5.2) g/dL Globulin 2.6 (2-4) g/dL Albumin/Globulin Ratio 1.5 (1-3) 10/03/18 10/03/18 Range/Units 20:34 20:34 WBC (3.5-10.8) 10^3/uL RBC (4.18-5.48) 10^6 /uL Hgb (14.0-18.0) g/dL Hct (42-52) % MCV (80-94) fL MCH (27-31) pg MCHC (31-36) g/dL RDW (10.5-15) % Plt Count (150-450) 10^3/uL MPV (7.4-10.4) fL Neut % (Auto) % Lymph % (Auto) % [place] % (Auto) % Eos % (Auto) % Baso % (Auto) % Absolute Neuts (auto) (1.5-7.7) 10^3/ul Absolute Lymphs (auto) (1.0-4.8) 10^3/ul Absolute Monos (auto) (0-0.8) 10^3/ul Absolute Eos (auto) (0-0.6) 10^3/ul Absolute Basos (auto) (0-0.2) 10^3/ul Absolute Nucleated RBC 10^3/ul Nucleated RBC % INR (Anticoag Therapy) (0.82-1.09) APTT (26.0-38.0) seconds Sodium (135-145) mmol/L Potassium (3.5-5.0) mmol/L Chloride (101-111) mmol/L Carbon Dioxide (22-32) mmol/L Anion Gap (2-11) mmol/L BUN (6-24) mg/dL Creatinine (0.67-1.17) mg/dL Est GFR ( Amer) (>60) Est GFR (Non-Af Amer) (>60) BUN/Creatinine Ratio (8-20) Glucose (70-100) mg/dL Lactic Acid 1.0 (0.5-2.0) mmol/L Calcium (8.6-10.3) mg/dL Total Bilirubin (0.2-1.0) mg/dL AST (13-39) U/L ALT (7-52) U/L Alkaline Phosphatase (34-104) U/L Total Creatine Kinase (10-223) U/L CK-MB (CK-2) (0.6-6.3) ng/mL Troponin I (<0.04) ng/mL C-Reactive Protein (<8.01) mg/L B-Natriuretic Peptide 179 H (<=100) pg/mL Total Protein (6.4-8.9) g/dL Albumin (3.2-5.2) g/dL Globulin (2-4) g/dL Albumin/Globulin Ratio (1-3) Assess/Plan/Problems-Billing Assessment: - Patient Problems (1) COPD exacerbation Current Visit: Yes Status: Acute Code(s): J44.1 - CHRONIC OBSTRUCTIVE PULMONARY DISEASE W (ACUTE) EXACERBATION SNOMED Code(s): 396253949 Comment: Continue solumedrol 40 mg iv bid Continue Doxycycline Duoneb PRN and scheduled Follows with Dr Perry.On every other day Azithromycin but listed as an allergy.Will discuss further with pt.On Doxy currently Still SOB Will get CT as below (2) Troponin level elevated Current Visit: Yes Status: Acute Code(s): R74.8 - ABNORMAL LEVELS OF OTHER SERUM ENZYMES SNOMED Code(s): 852911650 Comment: Minimally elevated Likely in the setting of demand Contiunue coreg,aspirin,crestor Will get CTA to r/o PE, aortic dissection as pt had pain in the back and between shoulder blades yesterday CT to also eval for intersial lung dx.Multiple episodes of Dyspnea will also r/ o malignancy (3) CKD (chronic kidney disease) Current Visit: Yes Status: Acute Code(s): N18.9 - CHRONIC KIDNEY DISEASE, UNSPECIFIED SNOMED Code(s): 649790943 Comment: stable (4) Dyspnea Current Visit: Yes Status: Acute Code(s): R06.00 - DYSPNEA, UNSPECIFIED SNOMED Code(s): 953319816 Comment: sec copd exacerbation will get abg Will get CTA to r/o PE, aortic dissection as pt had pain in the back and between shoulder blades yesterday CT to also eval for intersial lung dx.Multiple episodes of Dyspnea will also r/ o malignancy
[2018-10-04 17:47] LABS: ABS Lymphocytes 0.4 10^3/ul (1.0-4.8); ABS Monocytes 0.1 10^3/ul (0-0.8); ABS Neutrophils 8.5 10^3/ul (1.5-7.7); Hematocrit 47 % (42-52); Hemoglobin 15.6 g/dL (14.0-18.0); Mean Corpuscular HGB Conc 33 g/dL (31-36); Mean Corpuscular Hemoglobin 32 pg (27-31); Mean Corpuscular Volume 96 fL (80-94); Mean Platelet Volume 7.4 fL (7.4-10.4); Platelet Count 123 10^3/uL (150-450); Red Blood Count 4.85 10^6 /uL (4.18-5.48); Red Cell Distribution Width 13 % (10.5-15)
[2018-10-04 18:03] LABS: BUN/Creatinine Ratio 13.5 (8-20); Calcium 9.3 mg/dL (8.6-10.3); EGFR African American 62.4 (>60); EGFR Non-African American 51.6 (>60); Potassium 4.5 mmol/L (3.5-5.0)
[2018-10-04] MEDS: Albuterol/Ipratropium NEB.SOL* Albuterol 2.5 MG/Ipratropium 0.5 MG 3 ML INH SCH (19:47)
[2018-10-04] MEDS: NS 0.9% 500 ML* 500 ML IV SCH (21:03)
[2018-10-05] MEDS: Albuterol/Ipratropium NEB.SOL* Albuterol 2.5 MG/Ipratropium 0.5 MG 3 ML INH SCH ×4 (01:14→20:03)
[2018-10-05] MEDS: NS 0.9% 500 ML* 500 ML IV SCH (03:30)
[2018-10-05] MEDS: Heparin VIAL(*) 5000 UNITS/ML VIAL (FIVE THOUSAND) SUBCUT SCH ×3 (06:04→22:28)
[2018-10-05 06:18] LABS: Hematocrit 45 % (42-52); Hemoglobin 14.9 g/dL (14.0-18.0); Mean Corpuscular HGB Conc 33 g/dL (31-36); Mean Corpuscular Hemoglobin 32 pg (27-31); Mean Corpuscular Volume 97 fL (80-94); Red Blood Count 4.65 10^6 /uL (4.18-5.48); Red Cell Distribution Width 13 % (10.5-15)
[2018-10-05 06:35] LABS: ABS Lymphocytes 0.4 10^3/ul (1.0-4.8); ABS Monocytes 0.4 10^3/ul (0-0.8); ABS Neutrophils 13.2 10^3/ul (1.5-7.7); Lymphocyte % 3.2 %; Mean Platelet Volume 8.1 fL (7.4-10.4); Nucleated Red Blood Cells % 0.1; Platelet Count 108 10^3/uL (150-450)
[2018-10-05 06:48] LABS: Anion Gap 12 mmol/L (2-11); BUN/Creatinine Ratio 15.7 (8-20); Blood Urea Nitrogen 17 mg/dL (6-24); CO2 Carbon Dioxide 15 mmol/L (22-32); Calcium 8.7 mg/dL (8.6-10.3); Chloride 108 mmol/L (101-111); EGFR African American 79.4 (>60); EGFR Non-African American 65.6 (>60); Glucose 245 mg/dL (70-100); Sodium 135 mmol/L (135-145)
[2018-10-05] MEDS: FORMOTEROL INH SCH ×2 (07:29→20:03)
[2018-10-05] MEDS: MDI INH SCH ×2 (07:30→20:04)
[2018-10-05] MEDS: TIOTROPIUM BROM INH SCH ×2 (07:30→20:04)
[2018-10-05] MEDS: OLODATEROL INH SCH ×2 (07:30→20:04)
[2018-10-05] MEDS: Aspirin 81 mg CHEW TAB* 81 MG TAB.CHEW PO SCH (09:07)
[2018-10-05] MEDS: lamoTRIgine TAB(*) 25 MG PO SCH ×2 (09:07→22:31)
[2018-10-05] MEDS: DOXYcycline CAP(*) 100 MG PO SCH ×2 (09:07→22:33)
[2018-10-05] MEDS: Atorvastatin* 40 MG TAB PO SCH (09:07)
[2018-10-05] MEDS: Nystatin SUSPENSION* 100000 UNITS/ML 5 ML UDC PO SCH ×4 (09:07→22:35)
[2018-10-05] MEDS: Donepezil TAB* 5 MG PO SCH (09:07)
[2018-10-05] MEDS: Carvedilol TAB* 6.25 MG PO SCH ×2 (09:07→22:31)
[2018-10-05] MEDS: Famotidine TAB* 20 MG PO SCH ×2 (09:07→22:33)
[2018-10-05] MEDS: methylPREDNISolone SOD 40 MG* 1 ML VIAL IV SCH ×2 (11:05→22:24)
[2018-10-05] MEDS: Benzonatate CAP* 100 MG PO PRN ×2 (11:05→22:31)
--- NOTE | 2018-10-05 11:59 | PN ---
Subjective Date of Service: 10/05/18 Interval History: Reports coughing fits.Not bringing up any sputum. Reports mild improvement Objective Active Medications: Albuterol/Ipratropium (Duoneb (Albuterol 2.5 Mg/Ipratropium 0.5 Mg)) 1 neb INH Q4H PRN PRN Reason: SOB/WHEEZING Albuterol/Ipratropium (Duoneb (Albuterol 2.5 Mg/Ipratropium 0.5 Mg)) 1 neb INH [id number] AWAKE [facility] Last Admin: 10/05/18 07:27 Dose: 1 neb Aspirin (Aspirin 81 Mg Chew Tab*) 81 mg PO DAILY [facility] Last Admin: 10/05/18 09:07 Dose: 81 mg Atorvastatin Calcium (Lipitor*) 40 mg PO QAM [facility] Last Admin: 10/05/18 09:07 Dose: 40 mg Benzonatate (Tessalon Cap*) 100 mg PO BID PRN PRN Reason: cough Last Admin: 10/05/18 11:05 Dose: 100 mg Carvedilol (Coreg Tab*) 6.25 mg PO BID [facility] Last Admin: 10/05/18 09:07 Dose: 6.25 mg Donepezil HCl (Aricept Tab*) 10 mg PO DAILY [facility] Last Admin: 10/05/18 09:07 Dose: 10 mg Doxycycline Hyclate (Vibramycin Cap(*)) 100 mg PO BID [facility] Last Admin: 10/05/18 09:07 Dose: 100 mg Famotidine (Pepcid Tab*) 20 mg PO BID [facility]; Protocol Last Admin: 10/05/18 09:07 Dose: 20 mg Formoterol Fumarate (Perforomist Neb.Soln*(Nf)) 20 mcg INH RT.BID [facility] Last Admin: 10/05/18 07:29 Dose: 20 mcg Heparin Sodium (Porcine) (Heparin Vial(*)) 5,000 units SUBCUT Q8HR [facility] Last Admin: 10/05/18 06:04 Dose: 5,000 units Lamotrigine (Lamictal Tab(*)) 50 mg PO BID [facility] Last Admin: 10/05/18 09:07 Dose: 50 mg Methylprednisolone Sodium Succinate (Solu-Medrol 40 Mg) 40 mg IV Q12H [facility] Last Admin: 10/05/18 11:05 Dose: 40 mg Nystatin (Nystatin Suspension*) 500,000 units PO QID [facility] Stop: 10/10/18 23:49 Last Admin: 10/05/18 09:07 Dose: 500,000 units Tiotropium [place]/Olodaterol (Stiolto Respimat Inh [place] (60 Puff)(Nf)) 2 puff INH BID [facility] Last Admin: 10/05/18 07:30 Dose: 2 puff Vital Signs - 8 hr 10/05/18 10/05/18 10/05/18 07:30 07:40 08:00 Temperature 97.6 F Pulse Rate 83 73 Respiratory 16 14 20 Rate Blood Pressure 100/54 (mmHg) O2 Sat by Pulse 95 100 Oximetry Oxygen Devices in Use Now: Nasal Cannula Eyes: No Scleral Icterus Neck: NL Appearance and Movements; NL JVP Respiratory: Symmetrical Chest Expansion and Respiratory Effort, Clear to Auscultation, - - improved.no further wheezes and rhonchi today Cardiovascular: NL Sounds; No Murmurs; No JVD Abdominal: NL Sounds; No Tenderness; No Distention Extremities: No Edema Neurological: Alert and Oriented x 3 Result Diagrams: 10/05/18 05:14 10/05/18 07:35 Additional Lab and Data: Lab Results 10/03/18 10/03/18 10/03/18 Range/Units 20:34 20:34 20:34 WBC 7.9 (3.5-10.8) 10^3/uL RBC 4.89 (4.18-5.48) 10^6 /uL Hgb 15.9 (14.0-18.0) g/dL Hct 47 (42-52) % MCV 95 H (80-94) fL MCH 33 H (27-31) pg MCHC 34 (31-36) g/dL RDW 13 (10.5-15) % Plt Count 110 L (150-450) 10^3/uL MPV 6.9 L (7.4-10.4) fL Neut % (Auto) 75.3 % Lymph % (Auto) 11.7 % [place] % (Auto) 9.6 % Eos % (Auto) 2.7 % Baso % (Auto) 0.7 % Absolute Neuts (auto) 6.0 (1.5-7.7) 10^3/ul Absolute Lymphs (auto) 0.9 L (1.0-4.8) 10^3/ul Absolute Monos (auto) 0.8 (0-0.8) 10^3/ul Absolute Eos (auto) 0.2 (0-0.6) 10^3/ul Absolute Basos (auto) 0.1 (0-0.2) 10^3/ul Absolute Nucleated RBC 0.0 10^3/ul Nucleated RBC % 0.0 INR (Anticoag Therapy) 1.08 (0.82-1.09) APTT 33.0 (26.0-38.0) seconds Sodium 137 (135-145) mmol/L Potassium 4.0 (3.5-5.0) mmol/L Chloride 103 (101-111) mmol/L Carbon Dioxide 26 (22-32) mmol/L Anion Gap 8 (2-11) mmol/L BUN 13 (6-24) mg/dL Creatinine 1.35 H (0.67-1.17) mg/dL Est GFR ( Amer) 61.4 (>60) Est GFR (Non-Af Amer) 50.7 (>60) BUN/Creatinine Ratio 9.6 (8-20) Glucose 123 H (70-100) mg/dL Lactic Acid (0.5-2.0) mmol/L Calcium 9.5 (8.6-10.3) mg/dL Total Bilirubin 0.60 (0.2-1.0) mg/dL AST 17 (13-39) U/L ALT 18 (7-52) U/L Alkaline Phosphatase 61 (34-104) U/L Total Creatine Kinase 73 (10-223) U/L CK-MB (CK-2) 3.9 (0.6-6.3) ng/mL Troponin I 0.07 H* (<0.04) ng/mL C-Reactive Protein 49.56 H (<8.01) mg/L B-Natriuretic Peptide (<=100) pg/mL Total Protein 6.5 (6.4-8.9) g/dL Albumin 3.9 (3.2-5.2) g/dL Globulin 2.6 (2-4) g/dL Albumin/Globulin Ratio 1.5 (1-3) 10/03/18 10/03/18 Range/Units 20:34 20:34 WBC (3.5-10.8) 10^3/uL RBC (4.18-5.48) 10^6 /uL Hgb (14.0-18.0) g/dL Hct (42-52) % MCV (80-94) fL MCH (27-31) pg MCHC (31-36) g/dL RDW (10.5-15) % Plt Count (150-450) 10^3/uL MPV (7.4-10.4) fL Neut % (Auto) % Lymph % (Auto) % [place] % (Auto) % Eos % (Auto) % Baso % (Auto) % Absolute Neuts (auto) (1.5-7.7) 10^3/ul Absolute Lymphs (auto) (1.0-4.8) 10^3/ul Absolute Monos (auto) (0-0.8) 10^3/ul Absolute Eos (auto) (0-0.6) 10^3/ul Absolute Basos (auto) (0-0.2) 10^3/ul Absolute Nucleated RBC 10^3/ul Nucleated RBC % INR (Anticoag Therapy) (0.82-1.09) APTT (26.0-38.0) seconds Sodium (135-145) mmol/L Potassium (3.5-5.0) mmol/L Chloride (101-111) mmol/L Carbon Dioxide (22-32) mmol/L Anion Gap (2-11) mmol/L BUN (6-24) mg/dL Creatinine (0.67-1.17) mg/dL Est GFR ( Amer) (>60) Est GFR (Non-Af Amer) (>60) BUN/Creatinine Ratio (8-20) Glucose (70-100) mg/dL Lactic Acid 1.0 (0.5-2.0) mmol/L Calcium (8.6-10.3) mg/dL Total Bilirubin (0.2-1.0) mg/dL AST (13-39) U/L ALT (7-52) U/L Alkaline Phosphatase (34-104) U/L Total Creatine Kinase (10-223) U/L CK-MB (CK-2) (0.6-6.3) ng/mL Troponin I (<0.04) ng/mL C-Reactive Protein (<8.01) mg/L B-Natriuretic Peptide 179 H (<=100) pg/mL Total Protein (6.4-8.9) g/dL Albumin (3.2-5.2) g/dL Globulin (2-4) g/dL Albumin/Globulin Ratio (1-3) Microbiology and Other Data: Microbiology 10/04/18 15:55 Gram Stain - Final Sputum Assess/Plan/Problems-Billing Assessment: - Patient Problems (1) COPD exacerbation Current Visit: Yes Status: Acute Code(s): J44.1 - CHRONIC OBSTRUCTIVE PULMONARY DISEASE W (ACUTE) EXACERBATION SNOMED Code(s): 891751493 Comment: Continue solumedrol 40 mg iv bid Continue Doxycycline Duoneb PRN and scheduled Follows with Dr Perry.Was on every other day Azithromycin for a week per pt but listed as an allergy. Clinically improving slowly Ongoing cough, non productive will add johnny smith (2) Troponin level elevated Current Visit: Yes Status: Acute Code(s): R74.8 - ABNORMAL LEVELS OF OTHER SERUM ENZYMES SNOMED Code(s): 968431130 Comment: Minimally elevated Likely in the setting of demand Contiunue coreg,aspirin,crestor CTA neg for PE or aortic dissection.Pt initially had pain between shoulder blades (3) CKD (chronic kidney disease) Current Visit: Yes Status: Acute Code(s): N18.9 - CHRONIC KIDNEY DISEASE, UNSPECIFIED SNOMED Code(s): 939309155 Comment: stable (4) Dyspnea Current Visit: Yes Status: Acute Code(s): R06.00 - DYSPNEA, UNSPECIFIED SNOMED Code(s): 185949907 Comment: sec copd exacerbation will get abg CT no lung nodules,masses,PE
[2018-10-06] MEDS: Albuterol/Ipratropium NEB.SOL* Albuterol 2.5 MG/Ipratropium 0.5 MG 3 ML INH SCH ×2 (00:53→08:11)
[2018-10-06] MEDS: Heparin VIAL(*) 5000 UNITS/ML VIAL (FIVE THOUSAND) SUBCUT SCH ×2 (05:36→13:55)
[2018-10-06 06:33] LABS: ABS Lymphocytes 0.3 10^3/ul (1.0-4.8); ABS Monocytes 0.3 10^3/ul (0-0.8); ABS Neutrophils 13.4 10^3/ul (1.5-7.7); Hematocrit 45 % (42-52); Hemoglobin 14.9 g/dL (14.0-18.0); Lymphocyte % 2.4 %; Mean Corpuscular HGB Conc 33 g/dL (31-36); Mean Corpuscular Hemoglobin 32 pg (27-31); Mean Corpuscular Volume 96 fL (80-94); Mean Platelet Volume 7.7 fL (7.4-10.4); Platelet Count 138 10^3/uL (150-450); Red Cell Distribution Width 13 % (10.5-15); White Blood Count 14.1 10^3/uL (3.5-10.8)
[2018-10-06 06:52] LABS: BUN/Creatinine Ratio 15.4 (8-20); Calcium 9.3 mg/dL (8.6-10.3); EGFR African American 72.4 (>60); EGFR Non-African American 59.8 (>60); Potassium 4.1 mmol/L (3.5-5.0)
[2018-10-06] MEDS: FORMOTEROL INH SCH (08:11)
[2018-10-06] MEDS: TIOTROPIUM BROM INH SCH (08:12)
[2018-10-06] MEDS: MDI INH SCH (08:12)
[2018-10-06] MEDS: OLODATEROL INH SCH (08:12)
[2018-10-06] MEDS: Atorvastatin* 40 MG TAB PO SCH (10:48)
[2018-10-06] MEDS: Donepezil TAB* 5 MG PO SCH (10:48)
[2018-10-06] MEDS: lamoTRIgine TAB(*) 25 MG PO SCH (10:48)
[2018-10-06] MEDS: Carvedilol TAB* 6.25 MG PO SCH (10:48)
[2018-10-06] MEDS: DOXYcycline CAP(*) 100 MG PO SCH (10:48)
[2018-10-06] MEDS: Famotidine TAB* 20 MG PO SCH (10:48)
[2018-10-06] MEDS: Aspirin 81 mg CHEW TAB* 81 MG TAB.CHEW PO SCH (10:48)
[2018-10-06] MEDS: Nystatin SUSPENSION* 100000 UNITS/ML 5 ML UDC PO SCH ×3 (11:43→16:20)
[2018-10-06] MEDS: methylPREDNISolone SOD 40 MG* 1 ML VIAL IV SCH (11:43)
--- NOTE | 2018-10-06 12:29 | ECHO ---
*[facility]* [place] [address] Fax #: [phone] Transthoracic Echocardiogram Patient: Sean, Height: 74 in / 188 Christoph Mota cm : 1935 Weight: 221.5 lb / Study Date: 10/06/2018 100.7 kg Age: 83 BP: 109 / 60 Gender: M BMI/BSA: 28.5 kg/m^2 HR: 93 bpm / 2.27 m^2 *Resp Ther: * Lacy Johnson [facility] *Referring Physician: * Valerie Ramesh *Reading Physician: * Xiang Hernandez MD Indications: SOB. History: Coronary artery disease. Chronic obstructive pulmonary disease. Functional status: Renal failure. Labs, prior tests, procedures, and surgery: ICD system implantation. Conclusions Summary: 1. Left ventricle: Systolic function is normal. The estimated ejection fraction is 55-60%. Wall motion is normal; there are no regional wall motion abnormalities. 2. Mitral valve: There is no evidence of stenosis. There is mild to moderate regurgitation. 3. Aortic valve: There is no evidence of stenosis. 4. Tricuspid valve: There is mild-moderate regurgitation. 5. Pericardium, extracardiac: There is no significant pericardial effusion. Study data: Transthoracic echocardiogram. Procedure: Transthoracic echocardiography was performed. Image quality was fair. Complete 2D, spectral Doppler, and color flow Doppler. Location: Bedside. Patient status: Inpatient. Patient room number: 446-2. Rhythm: Paced rhythm. Findings Left ventricle: The cavity size is normal. There is moderate concentric hypertrophy. Systolic function is normal. The estimated ejection fraction is 55-60%. Wall motion is normal; there are no regional wall motion abnormalities. Left ventricular diastolic function parameters are indeterminate. Right ventricle: The cavity size is mildly dilated. Pacer wire noted in the right ventricle. Systolic function is normal. Left atrium: The atrium is mildly to moderately dilated. Right atrium: The atrium is mildly dilated. Pacer wire noted in right atrium. Mitral valve: The annulus is mildly calcified. The leaflets are mildly thickened. There is no evidence of stenosis. There is mild to moderate regurgitation. Aortic valve: The valve is trileaflet. The leaflets are mildly thickened. Thickening, consistent with sclerosis. There is no evidence of stenosis. There is trivial regurgitation. Tricuspid valve: The leaflets are normal thickness. There is no evidence of stenosis. There is mild-moderate regurgitation. Pulmonic valve: The leaflets are normal thickness. There is no evidence of stenosis. There is trivial regurgitation. Aorta: Aortic root: The aortic root is upper normal in size. Ascending aorta: The ascending aorta is appears normal. Aortic arch: The aortic arch is appears normal. The aortic root is not dilated. Pericardium: A prominent pericardial fat pad is present. There is no significant pericardial effusion. Pulmonary arteries: The main pulmonary artery is normal-sized. Systolic pressure is at the upper limits of normal. Systemic veins: Inferior vena cava: The vessel is normal in size. The respirophasic diameter changes are in the normal range (>= 50%). Measurements Left ventricle Value Ref Aortic valve Value Ref LEIDA, LAX 4.8 cm 4.2 - 5.8 Tori diam, ED 2.0 cm ----- ESD, LAX 3.4 cm 2.5 - 4.0 Peak v, S 1.5 m/sec ----- FS, LAX 29 % 25 - 43 VTI, S 30.6 cm ----- PW, ED, LAX (H) 1.4 cm 0.6 - 1.0 Mean grad, S 5.0 mm Hg ----- FS 29 % 25 - 43 Peak grad, S 9.0 mm Hg ----- PW, ED (H) 1.4 cm 0.6 - 1.0 LVOT/AV, VTI ratio 0.65 ----- E', lat tori, TDI (L) 6.0 cm/sec >=10.0 [place], VTI 2.05 cm^2 --- -- E/e', lat tori, 16 [place], Vmax 2.22 cm^2 ----- TDI E', med tori, TDI (L) 3.3 cm/sec >=7.0 Mitral valve Value Ref E/e', med tori, 29 Peak E 0.95 m/sec ----- TDI Peak A 0.78 m/sec ----- E', avg, TDI 4.7 cm/sec Decel time 183 ms ----- E/e', avg, TDI (H) 20 <=14 Peak grad, D 3.6 mm Hg --- -- Peak E/A ratio 1.2 ----- LVOT Value Ref Diam, S 2.00 cm Pulmonic valve Value Ref Area 3.1 cm^2 Peak v, S 0.99 m/sec ----- Peak senia, S 1.06 m/sec Peak grad, S 4.0 mm Hg ----- VTI, S 20.0 cm Mean grad, S 3 mm Hg Tricuspid valve Value Ref SV 64 ml TR peak v 2.8 m/sec <=2.8 SV/bsa 28 ml/m^2 Peak RV-RA grad, S 31 mm Hg ----- Ventricular septum Value Ref Aortic root Value Ref IVS, ED (H) 1.5 cm 0.6 - 1.0 Root diam 3.6 cm <4.3 Right ventricle Value Ref Ascending aorta Value Ref LEIDA, LAX 4.0 cm AAo AP diam, S 3.2 cm ----- LEIDA minor ax, A4C (H) 4.8 cm 1.9 - 3.5 mid Aortic arch Value Ref Pressure, S 34 mm Hg Arch diam 3.4 cm ----- Left atrium Value Ref Decending aorta Value Ref AP dim, ES (H) 4.90 cm 3.00 - David peak senia 0.7 m/sec ----- 4.00 ML dim, A4C 5.0 cm Pulmonary artery Value Ref SI dim, A4C 6.0 cm Pressure, S 30.0 mm Hg ----- Vol/bsa, ES, 1-p (H) 43 ml/m^2 12 - 37 A4C Inferior vena cava Value Ref Vol/bsa, ES, A/L (H) 41 ml/m^2 16 - 34 Diam 2.1 cm ----- Right atrium Value Ref SI dim, ES (H) 5.5 cm 3.4 - 5.3 ML dim, ES, A4C (H) 4.9 cm 2.6 - 4.4 SI dim, ES, A4C (H) 5.5 cm 3.4 - 5.3 Estimated RAP 3 mm Hg Legend: (L) and (H) frank values outside specified reference range. Prepared and electronically signed by Xiang Hernandez MD 10/06/2018 12:28
[2018-10-06 20:25] VITALS: BP 116/71
--- NOTE | 2018-10-07 03:48 | DS ---
CC: Dr. Александр Astorga; Dr. Elsa Perry * DISCHARGE SUMMARY: DATE OF ADMISSION: 10/03/18 DATE OF DISCHARGE: 10/06/18 PRIMARY CARE PROVIDER: Dr. Александр Astorga. STORAGE CONSULTANT: Dr. Elsa Perry. ATTENDING PHYSICIAN: Lexus Shipley DO * (dictated by Marcela Niño NP). PRIMARY DIAGNOSES: 1. Chronic obstructive pulmonary disease exacerbation. 2. Acute hypoxic respiratory failure. 3. Back pain, musculoskeletal. SECONDARY DIAGNOSES: 1. Coronary artery disease. 2. Gastroesophageal reflux disease 3. Chronic kidney disease stage 3. STUDIES WHILE IN THE HOSPITAL: 1. Chest x-ray on 10/03/18 reads as no radiographic evidence of acute cardiopulmonary disease. 2. EKG on 10/03/18 shows normal sinus rhythm at the rate of 84, QTc 480, right bundle-branch block. His EKG is consistent with the previous EKG on file. 3. Chest thorax CT on 10/04/18, reads as no pulmonary emboli. No additional findings correlate with the patient's symptomatology. 4. Transthoracic echocardiogram 10/06/18 reads as left ventricular systolic function is normal. The estimated ejection fraction is 55% to 60%. Wall motion is normal. There are no regional wall motion abnormalities. There is mild-to- moderate mitral regurgitation. There is no evidence of mitral stenosis. There is no evidence of aortic stenosis. There is rrns-at-wuyytjtr tricuspid regurgitation. There is no significant pericardial effusion. HISTORY OF PRESENT ILLNESS AND HOSPITAL COURSE: Mr. Estrada is an 83-year-old male with past medical history of COPD with frequent exacerbations, CAD, GERD, CKD, who presented to the emergency room on 10/01/18 with complaints of shortness of breath and back pain. Please see the history and physical by Dr. Shipley for complete summary of the events leading up to this hospitalization. In short, the patient reported not sleeping well over the last several days and worsening cough over the last week. During that time, he did develop some back pain between his scapula which is described as constant and worse with coughing. Of note, the patient was reasonably placed on suppressive therapy with every other day azithromycin for his frequent COPD exacerbations. In the emergency room, he had imaging as noted above. He had lab work, which was remarkable for thrombocytopenia, consistent with his baseline, a normal ABG. Elevated CRP at 49 and an elevated troponin 0.07. Because of the concern for COPD exacerbation, he was admitted by the hospitalist service. The patient was started on Solu-Medrol although he does have elevated troponin. The patient has had elevated troponins consistently from 2017, so this does appear to be consistent with his baseline. His back pain was determined to be musculoskeletal and has resolved on the day of discharge. Ultimately, on , the patient did require up to 2 L of oxygen to maintain saturations in the low 90s. As of today, he is saturating well at rest and on exertion while on room air. On admission, the patient had a urine culture which did grow Staph epidermidis with colony count of 25,000 to 500,000. This was not treated due to the low colony count and lack of symptoms. The patient also was able to provide a sputum sample. This sputum grew Proteus mirabilis resistant only to tetracycline. The patient on admission was placed on doxycycline though has shown significant clinical improvement admission which I suspect is secondary to corticosteroids. As of today, the patient reports feeling well. He offers no complaints and is anxious to return home. On exam, he has no neurological deficits. His heart has irregular rate and rhythm without murmurs, rubs or gallops. His lungs are diminished throughout without rhonchi, wheezes or rubs. Physical exam was otherwise benign. As noted above, he has ambulated on room air with saturations dropping only to 92% per nursing. Mr. Estrada is stable for discharge today. Vital signs are as follows: Temp 97.8, heart rate 84, respiratory rate 16, oxygen saturation 98% on room air, blood pressure 109/58. DISCHARGE MEDICATIONS: New Medications: 1. Albuterol MDI 2 puffs q.4 hours p.r.n. shortness of breath. 2. Amoxicillin 1000 mg p.o., t.i.d. x7 days. 3. Tessalon 100 mg p.o. b.i.d. p.r.n. cough. 4. Prednisone 10 mg tab taper (take 3 tabs for 3 days and 2 tabs for 3 days, then 1 tab for 3 days) CONTINUED MEDICATIONS: 1. DuoNeb 1 neb q.4 hours p.r.n. shortness of breath, wheezing. 2. Aspirin 81 mg p.o. daily. 3. Azithromycin 250 mg p.o. every other day. 4. Carvedilol 6.25 mg p.o. b.i.d. 5. Aricept 10 mg p.o. daily. 6. Formoterol 20 mcg one inhalation b.i.d. 7. Furosemide 40 mg p.o. daily p.r.n. lower extremity edema. 8. Lamictal 50 mg p.o. b.i.d. 9. Nitro 0.4 mg sublingual q.5 minutes p.r.n. angina. 10. Ranitidine 150 mg p.o. b.i.d. 11. Rosuvastatin 20 mg p.o. daily. 12. Saw palmetto 450 mg p.o. b.i.d. 13. Stiolto Respimat 2 puffs b.i.d. DISCHARGE PLAN: Mr. Estrada will be discharged home. Activity will be as tolerated. Diet will be regular as tolerated. Medications are noted above. I have prescribed a prednisone taper. Of note, the patient's reports that he typically does not do very well on more than 30 mg of prednisone as it makes him quite anxious and somewhat confused, so I am starting the taper at 30 mg. He will additionally need to complete 7 days of amoxicillin as noted above. He was on doxycycline while here in the hospital though ultimately the proteus in his sputum was resistant to tetracycline, so he will need to complete a 7-day course of the amoxicillin. He has been taking Tessalon for cough while here in the hospital and he reports that this has been working well for him. Additionally, the patient notes that he uses nebulizers as needed at home for shortness of breath, so does not have any albuterol inhalers that he can take with him, so I have sent him a prescription for an albuterol MDI. He can continue with other usual medications as noted above and I have not made any further changes. He can continue to take the amoxicillin along with the azithromycin he has already been on. The patient will need to follow up with his primary care provider in 4 to 7 days. Additionally, he should follow up with Dr. Perry within the next month due to his severe COPD and frequency of exacerbations. The patient was instructed to return to the emergency room or nearest hospital for any worsening of symptoms, shortness of breath, lightheadedness, dizziness, chest discomfort, high fevers, chills, night sweats , loss of consciousness, or any other worrisome signs or symptoms. DISCHARGE CONDITION: Stable. DISCHARGE DISPOSITION: Home. This is a summarized report of a complex medical history and hospital stay. For further details, please see the entire medical record. TIME SPENT: Approximately 45 minutes was spent on this discharge. MARCELA NIÑO, [employer] [id number]/CPS #: [id number]
== END 2018-10-06 16:15 | disposition home or self-care (01) | DRG 190 ==
LOC: ED 19:01 → MEDTELE 23:23 → OBSVTOIN 10-04 11:29
PROVIDERS: ADMIT Hospitalist; ATTEND Hospitalist
DX: J44.1 Chronic obstructive pulmonary disease with (acute) exacerbation (principal); J96.01 Acute respiratory failure with hypoxia; M54.9 Dorsalgia, unspecified; I25.10 Atherosclerotic heart disease of native coronary artery without angina pectoris; K21.9 Gastro-esophageal reflux disease without esophagitis; N18.3 Chronic kidney disease, stage 3 (moderate); I45.10 Unspecified right bundle-branch block; I08.1 Rheumatic disorders of both mitral and tricuspid valves; Z66 Do not resuscitate; K22.70 Barrett's esophagus without dysplasia; N40.0 Benign prostatic hyperplasia without lower urinary tract symptoms; G31.84 Mild cognitive impairment of uncertain or unknown etiology; K59.00 Constipation, unspecified; R13.19 Other dysphagia; R74.8 Abnormal levels of other serum enzymes; Z79.82 Long term (current) use of aspirin; Z79.51 Long term (current) use of inhaled steroids; Z79.899 Other long term (current) drug therapy; Z88.1 Allergy status to other antibiotic agents; Z88.8 Allergy status to other drugs, medicaments and biological substances; Z82.49 Family history of ischemic heart disease and other diseases of the circulatory system; Z83.3 Family history of diabetes mellitus; Z80.9 Family history of malignant neoplasm, unspecified; Z87.891 Personal history of nicotine dependence
CPT/HCPCS: 36415; 36600; 71046; 71275; 80048; 80053; 81003; 81015; 82550; 82553; 82803; 83605; 83880; 84484; 85025; 85610; 85730; 86140; 87070; 87077; 87086; 87186; 87205; 93005; 93306; 94640; 99284; A9270-GY; J1644; J2060; J2920; J2930; Q9967

== ENCOUNTER 2021-02-09 10:09 | Observation (INO) ==
[2021-02-09 12:20] LABS: ABS Basophils 0.1 10^3/ul (0-0.2); ABS Eosinophils 0.6 10^3/ul (0-0.6); ABS Lymphocytes 0.4 10^3/ul (1.0-4.8); ABS Monocytes 0.8 10^3/ul (0-0.8); ABS Neutrophils 6.7 10^3/ul (1.5-7.7); Eosinophil % 7.2 %; Hematocrit 47 % (42-52); Hemoglobin 15.9 g/dL (14.0-18.0); Lymphocyte % 4.4 %; Mean Corpuscular HGB Conc 34 g/dL (31-36); Mean Corpuscular Hemoglobin 33 pg (27-31); Mean Corpuscular Volume 97 fL (80-94); Mean Platelet Volume 7.2 fL (7.4-10.4); Platelet Count 131 10^3/uL (150-450); Red Blood Count 4.84 10^6 /uL (4.18-5.48); Red Cell Distribution Width 12 % (10-15); White Blood Count 8.6 10^3/uL (3.5-10.8)
[2021-02-09 12:42] LABS: ALT 16 U/L (7-52); AST 17 U/L (13-39); Albumin/Globulin Ratio 1.5 (1-3); Alkaline Phosphatase 66 U/L (35-149); Anion Gap 6 mmol/L (2-11); Blood Urea Nitrogen 19 mg/dL (6-24); CO2 Carbon Dioxide 30 mmol/L (22-32); Calcium 9.4 mg/dL (8.6-10.3); Chloride 103 mmol/L (101-111); Globulin 2.6 g/dL (2-4); Glucose 119 mg/dL (70-100); Magnesium 2.3 mg/dL (1.9-2.7); Potassium 4.2 mmol/L (3.5-5.0); Sodium 139 mmol/L (135-145); Total Protein 6.6 g/dL (6.4-8.9)
[2021-02-09 12:44] LABS: Troponin I 0.07 ng/mL (<0.03)
[2021-02-09 13:05] LABS: TSH Ultra Thyroid Stim Horm 2.48 mcIU/mL (0.34-5.60)
[2021-02-09] MEDS ORDERED: Albuterol HFA INHALER 8 gm MDI INH PRN (15:16)
[2021-02-09] MEDS ORDERED: Iodixanol (CONTRAST) 320 MG/ML 100 ML SDV IV ONE (15:40)
[2021-02-09 16:50] LABS: Urine Appearance Clear; Urine Bilirubin Negative (Negative); Urine Blood 1+ (Negative); Urine Color Yellow; Urine Glucose Negative (Negative); Urine Ketones Negative (Negative); Urine Nitrite Negative (Negative); Urine Protein Negative (Negative); Urine Specific Gravity 1.018 (1.002-1.030); Urine Urobilinogen Negative (Negative)
[2021-02-09 16:53] LABS: Rapid COVID-19 Molecular Undetected (Undetected)
[2021-02-09 16:54] LABS: Urine Bacteria Absent (Absent); Urine Red Blood Cell 3+(>10/hpf) (Absent); Urine Squamous Epithelial Cell Present (Absent); Urine White Blood Cell Trace(0-5/hpf) (Absent)
[2021-02-09] MEDS: CMC:Formoterol 20 MCG/2ML NEB (NF) 10 MCG/ML NEB.SOLN INH SCH (20:31)
[2021-02-09] MEDS: Tiotropium Brom/Olodaterol MDI INH SCH (20:31)
[2021-02-09] MEDS ORDERED: Enoxaparin 40 MG/0.4 ML SYR SUBCUT SCH (21:00)
[2021-02-10 07:13] LABS: ABS Basophils 0.1 10^3/ul (0-0.2); ABS Eosinophils 0.6 10^3/ul (0-0.6); ABS Lymphocytes 0.7 10^3/ul (1.0-4.8); ABS Monocytes 0.7 10^3/ul (0-0.8); ABS Neutrophils 5.1 10^3/ul (1.5-7.7); Eosinophil % 8.7 %; Hematocrit 46 % (42-52); Hemoglobin 15.7 g/dL (14.0-18.0); Lymphocyte % 9.2 %; Mean Corpuscular HGB Conc 35 g/dL (31-36); Mean Corpuscular Hemoglobin 34 pg (27-31); Mean Corpuscular Volume 97 fL (80-94); Mean Platelet Volume 7.5 fL (7.4-10.4); Platelet Count 121 10^3/uL (150-450); Red Cell Distribution Width 12 % (10-15); White Blood Count 7.2 10^3/uL (3.5-10.8)
[2021-02-10 07:28] LABS: Anion Gap 5 mmol/L (2-11); Blood Urea Nitrogen 16 mg/dL (6-24); CO2 Carbon Dioxide 31 mmol/L (22-32); Calcium 9.5 mg/dL (8.6-10.3); Chloride 102 mmol/L (101-111); Glucose 106 mg/dL (70-100); Magnesium 2.2 mg/dL (1.9-2.7); Sodium 138 mmol/L (135-145)
[2021-02-10] MEDS: CMC:Formoterol 20 MCG/2ML NEB (NF) 10 MCG/ML NEB.SOLN INH SCH (07:32)
[2021-02-10] MEDS: Tiotropium Brom/Olodaterol MDI INH SCH (07:34)
[2021-02-10 08:47] LABS: Troponin I 0.07 ng/mL (<0.03)
[2021-02-10] MEDS ORDERED: Perflutren Lipid Microsphere 3 ML VIAL ONE (09:39)
[2021-02-10] MEDS ORDERED: Enoxaparin 40 MG/0.4 ML SYR SUBCUT SCH (11:00)
[2021-02-10 12:34] VITALS: BP 113/68
== END 2021-02-10 15:30 | disposition home or self-care (01) ==
LOC: MEDTELE 10:09 → ED 10:09 → MEDTELE 02-10 02:30
PROVIDERS: ADMIT Internal Medicine; ATTEND Internal Medicine

== ENCOUNTER 2022-03-21 15:38 | Observation (INO) ==
[2022-03-21 18:37] LABS: ABS Basophils 0.1 10^3/ul (0-0.2); ABS Eosinophils 0.3 10^3/ul (0-0.6); ABS Lymphocytes 0.8 10^3/ul (1.0-4.8); ABS Monocytes 0.8 10^3/ul (0-0.8); ABS Neutrophils 6.7 10^3/ul (1.5-7.7); Hematocrit 51 % (42-52); Hemoglobin 16.6 g/dL (14.0-18.0); Lymphocyte % 8.9 %; Mean Corpuscular HGB Conc 33 g/dL (31-36); Mean Corpuscular Hemoglobin 32 pg (27-31); Mean Corpuscular Volume 99 fL (80-94); Mean Platelet Volume 7.1 fL (7.4-10.4); Nucleated Red Blood Cells % 0.1; Platelet Count 143 10^3/uL (150-450); Red Blood Count 5.14 10^6 /uL (4.18-5.48); Red Cell Distribution Width 14 % (10-15); White Blood Count 8.6 10^3/uL (3.5-10.8)
[2022-03-21 19:32] LABS: Albumin 4.4 g/dL (3.2-5.2); Albumin/Globulin Ratio 1.9 (1-3); C Reactive Protein 12.91 mg/L (<8.01); Calcium 9.8 mg/dL (8.6-10.3); Globulin 2.3 g/dL (2-4); Total Bilirubin 0.5 mg/dL (0.2-1.0); Total Protein 6.7 g/dL (6.4-8.9); eGFR CKD-EPI 33.1 (>60)
[2022-03-21 19:49] LABS: High Sensitivity Troponin 1 Hr 103 pg/mL (<20)
[2022-03-21] MEDS ORDERED: Iodixanol (CONTRAST) 320 MG/ML 100 ML SDV IV ONE (19:57)
[2022-03-21] MEDS ORDERED: Heparin DRIP 25,000 UNITS BAG 25,000 UNITS/500 ML BAG IV SCH (21:15)
[2022-03-21 21:36] LABS: ABS Eosinophils 0.3 10^3/ul (0-0.6); ABS Lymphocytes 0.9 10^3/ul (1.0-4.8); ABS Monocytes 0.7 10^3/ul (0-0.8); ABS Neutrophils 6.5 10^3/ul (1.5-7.7); Eosinophil % 3.9 %; Hematocrit 46 % (42-52); Lymphocyte % 10.7 %; Mean Corpuscular HGB Conc 33 g/dL (31-36); Mean Corpuscular Hemoglobin 32 pg (27-31); Mean Corpuscular Volume 99 fL (80-94); Mean Platelet Volume 7.3 fL (7.4-10.4); Platelet Count 138 10^3/uL (150-450); Red Blood Count 4.64 10^6 /uL (4.18-5.48); Red Cell Distribution Width 14 % (10-15); White Blood Count 8.5 10^3/uL (3.5-10.8)
[2022-03-21] MEDS ORDERED: Heparin 5000 UNITS/ML 1 mL VIAL IV SCH (22:00)
[2022-03-21 22:17] LABS: eGFR CKD-EPI 33.5 (>60)
[2022-03-21] MEDS ORDERED: Albuterol HFA INHALER 8 gm MDI INH PRN (22:24)
[2022-03-22 03:36] LABS: ABS Basophils 0.1 10^3/ul (0-0.2); ABS Eosinophils 0.4 10^3/ul (0-0.6); ABS Lymphocytes 1.1 10^3/ul (1.0-4.8); ABS Monocytes 0.6 10^3/ul (0-0.8); ABS Neutrophils 5.5 10^3/ul (1.5-7.7); Eosinophil % 5.1 %; Hematocrit 48 % (42-52); Hemoglobin 15.9 g/dL (14.0-18.0); Lymphocyte % 14.6 %; Mean Corpuscular HGB Conc 33 g/dL (31-36); Mean Corpuscular Hemoglobin 33 pg (27-31); Mean Corpuscular Volume 98 fL (80-94); Nucleated Red Blood Cells % 0.1; Platelet Count 129 10^3/uL (150-450); Red Blood Count 4.87 10^6 /uL (4.18-5.48); Red Cell Distribution Width 14 % (10-15); White Blood Count 7.6 10^3/uL (3.5-10.8)
[2022-03-22 04:23] LABS: Potassium 3.5 mmol/L (3.5-5.0)
[2022-03-22 04:51] LABS: Calcium 9.2 mg/dL (8.6-10.3); eGFR CKD-EPI 36.7 (>60)
[2022-03-22] MEDS: Carbidopa/Levodop 25/100 MG TAB PO SCH ×2 (08:55→13:22)
[2022-03-22] MEDS ORDERED: CMCS: Formoterol 20 MCG/2ML NEB (NF) 10 MCG/ML NEB.SOLN INH SCH (09:00)
[2022-03-22] MEDS ORDERED: Tiotropium Brom/Olodaterol MDI INH SCH (09:00)
[2022-03-22] MEDS ORDERED: Enoxaparin 80 MG/0.8 ML SYR SUBCUT ONE (15:00)
[2022-03-22 15:28] VITALS: BP 104/61
== END 2022-03-22 16:15 | disposition home or self-care (01) ==
LOC: EDHOLD 15:38 → ED 15:38 → SUATTDRO 22:11 → MEDTELE 03-22 00:10
PROVIDERS: ADMIT Student in an Organized Health Care Education/Training Program; ATTEND Hospitalist